=== PATIENT | female | born 1950 | race Caucasian/White ===

== ENCOUNTER 2021-09-14 11:57 | Observation (INO) | payer OTHER, SELFPAY ==
[2021-09-14] VITALS (26 sets, daily range): BP systolic 125–171; BP diastolic 58–95; PULSE 81–104; RESP 15–26; TEMP 36.5–37.3; O2SAT 95–99; BMI 21.7
[2021-09-14 12:30] LABS: Add Manual Diff / Slide Review NO; Basophils Absolute Auto 200 /uL (0-100); Basophils Percent Auto 2.4 % (0-2); Eosinophils Absolute Auto 100 /uL (0-450); Eosinophils Percent Auto 0.7 % (2-4); Hemoglobin 7.2 g/dL (12.0-16.0); Lymphocytes Absolute Auto 1600 /uL (1100-4500); Lymphocytes Percent Auto 24.1 % (25-40); Mean Corpuscular HGB Conc 32.7 % (30-36); Mean Corpuscular Hemoglobin 25.6 PG (26-34); Mean Corpuscular Volume 78.2 fL (80-100); Monocytes Absolute Auto 1600 /uL (0-900); Neutrophils Absolute Auto 3400 /uL (1500-7000); Neutrophils Percent Auto 49.8 % (50-75); Platelet Count 214 X10^3/uL (150-400); Red Blood Cell Count 2.81 X10^6/uL (4.0-5.2); Red Cell Distribution Width 32.7 % (11.6-14.8); White Blood Cell Count 6.8 X10^3/uL (4.5-11.0)
[2021-09-14 12:40] LABS: INR 1.2 (0.9-1.3); Prothrombin Time 13.8 SECONDS (10.1-12.7)
[2021-09-14 12:43] LABS: PTT Partial Thromboplastin Tim 24 SECONDS (26.4-36.2)
[2021-09-14 12:44] LABS: Alanine Aminotransferase 13 IU/L (<35); Albumin 4.2 g/dL (3.5-5.0); Albumin Globulin Ratio 1.4 (1.0-2.8); Alkaline Phosphatase 80 U/L (38-126); Aspartate Aminotransferase 21 IU/L (14-36); BUN Creatinine Ratio 15.5 (6-22); Blood Urea Nitrogen 11 mg/dL (7-17); Carbon Dioxide 26 mmol/L (22-32); Chloride 100 mmol/L (98-107); Estimated Glomerular Filt Rate > 60.0 mL/min (>60); Glucose 115 mg/dL (80-110); HEMOLYSIS < 15 (0-50); Potassium 4.1 mmol/L (3.4-5.1); Sodium 136 mmol/L (137-145); Total Protein 7.2 g/dL (6.3-8.2)
[2021-09-14 13:19] LABS: Anisocytosis 3+; Hypochromasia 2+; Poikilocytosis 1+; Polychromasia 1+
[2021-09-14 13:20] LABS: Ovalocytes 1+
--- NOTE | 2021-09-14 14:40 | ED.WEAKNESS ---
HPI - Weakness General Chief complaint: Weakness Stated complaint: Blood Transfusion Time Seen by Provider: 09/14/21 14:39 Source: patient Mode of arrival: Ambulatory Limitations: no limitations History of Present Illness HPI Narrative: This is a 71-year-old female comes to the emergency department with complaint of fatigue feeling tired and low blood count. She states she has felt lightheaded but not syncopized. No chest pain. She has occasionally felt short of breath. No nausea or vomiting. No diarrhea constipation. No black or bloody stools. No changes to urination, no bleeding or bruising that is been unexpected. She states she has just felt progressively worse for the past month. About 2 months ago she was diagnosed with community-acquired pneumonia and treated at [facility] in the emergency department and discharged. She denies any medical issues. She has had tonsillectomy in the past. She has not had a prior colonoscopy. No tobacco she quit 2 years ago. She drinks 2-4 alcoholic drinks nightly. No illicit. Her primary care is Lucy Redding. Related Data Allergies Allergy/AdvReac Type Severity Reaction Status Date / Time No Known Drug Allergies Allergy Verified 09/14/21 12:04 Review of Systems Review of Systems ROS Unobtainable: All systems reviewed & are unremarkable except as noted in HPI and below Patient History Medical History Community acquired bacterial pneumonia Hip pain Surgical History History of tonsillectomy Family History Father Pancreatic cancer Mother Hx of CABG Social History Smoking Status: Former smoker Smoking Status: Former smoker alcohol intake frequency: 3 or more drinks per day Substance Use Type: does not use Exam Narrative Exam Narrative: GENERAL: Alert and oriented x three, female in mild distress. HEENT: Head normocephalic, atraumatic, EOMI, pupils reactive, face symmetric, moist mucous membranes NECK: Supple, full range of motion CARDIOVASCULAR: Regular rate and rhythm without murmurs, rubs or gallops. RESPIRATORY: Breath sounds equal bilaterally, no wheezes rales or rhonchi. ABDOMEN: Soft, nontender. Normoactive bowel sounds all 4 quadrants. No guarding or rebound, rigidity, no mass. Rectal exam patient has poor stool sample but is negative. No hemorrhoids are appreciated on exam, no mass. : No CVA tenderness. EXTREMITIES: Normal range of motion, no clubbing or edema. Neurovascularly intact NEUROLOGICAL: Cranial nerves II through XII grossly intact. Moving all extremities SKIN: Warm, dry, no petechiae, no rashes or lesions. Initial Vital Signs Initial Vital Signs: Vital Signs Temperature 98.4 F 09/14/21 12:04 Pulse Rate 104 H 09/14/21 12:04 Respiratory Rate 15 09/14/21 12:04 Blood Pressure 165/74 H 09/14/21 12:04 Pulse Oximetry 99 09/14/21 12:04 Course Orders Ordered: ED Orders 09/14/21 12:08 EKG-12 Lead Stat 09/14/21 12:15 Complete Blood Count AUTO DIFF Stat Comprehensive Metabolic Panel Stat Packed Cells Stat Partial Thromboplastin Time Stat Prothrombin Time INR Stat Type and Screen Stat Acetaminophen (Acetaminophen 325 Mg Tablet) 650 mg PO Q6HR PRN PRN Reason: Fever/Mild Pain (1-3) Bisacodyl (Bisacodyl 10 Mg Supp) 10 mg DE DAILY PRN PRN Reason: Constipation Docusate Sodium (Docusate 100 Mg Capsule) 100 mg PO BID CARMELINA Folic Acid (Folic Acid 1 Mg Tablet) 1 mg PO DAILY CARMELINA Sodium Chloride (Normal Saline 0.9%) 250 mls @ 21 mls/hr IV CONT CARMELINA Dextrose/Sodium Chloride (Dextrose 5%-0.45% Ns) 1,000 mls @ 100 mls/hr IV CONT CARMELINA Lorazepam (Lorazepam 1 Mg Tablet) 1 mg PO Q6HR PRN PRN Reason: Alcohol Withdrawal Magnesium Hydroxide (Magnesium Hydroxide 30 Ml Udc) 30 ml PO DAILY PRN PRN Reason: Constipation Multivitamins (Multivitamin 1 Tablet) 1 tab PO DAILY CARMELINA Naloxone HCl (Naloxone 0.4 Mg/Ml Vial) 0.2 mg IV Q2MIN PRN PRN Reason: Opiate Reversal Ondansetron HCl (Ondansetron 4 Mg/2 Ml Inj) 4 mg IV Q8HR PRN PRN Reason: Nausea And Vomiting Pantoprazole Sodium (Pantoprazole 40 Mg Vial) 40 mg IV BID CARMELINA Polyethylene Glycol/Electrolytes ([id number]/Sod Sulf,Bicarb,Cl/Kcl 4,000 Ml Solution) 2,000 ml PO NOW ONE Stop: 09/15/21 07:32 Thiamine HCl (Thiamine 100 Mg Tablet) 100 mg PO DAILY CARMELINA Stop: 09/17/21 09:01 Discontinued Medications Polyethylene Glycol/Electrolytes ([id number]/Sod Sulf,Bicarb,Cl/Kcl 4,000 Ml Solution) 2,000 ml PO NOW ONE Stop: 09/14/21 17:31 Last Admin: 09/14/21 19:23 Dose: 2,000 ml Documented by: ATAYLOR Consultations Consultation #1: Dr. Connors accepts for admission. We are attempting to get records from [facility]. Time: 15:26 Vital Signs Vital signs: Vital Signs - 8 hr 09/14/21 12:04 09/14/21 13:22 09/14/21 13:34 Temperature 98.4 F Pulse Rate 104 H 97 H 98 H Respiratory Rate 15 21 22 Blood Pressure 165/74 H 138/63 Pulse Oximetry 99 97 97 09/14/21 14:00 09/14/21 14:30 09/14/21 15:00 Temperature Pulse Rate 93 H 92 H 93 H Respiratory Rate 19 21 25 H Blood Pressure 125/58 L 135/58 L 142/65 H Pulse Oximetry 97 97 98 MDM - Weakness Lab Data Result diagrams: 09/14/21 12:15 09/14/21 12:15 Labs: Lab Results 09/14/21 09/14/21 09/14/21 Range/Units 12:15 12:15 12:15 WBC 6.8 (4.5-11.0) X10^3/uL RBC 2.81 L (4.0-5.2) X10^6/uL Hgb 7.2 L (12.0-16.0) g/dL Hct 22.0 L (36-46) % MCV 78.2 L (80-100) fL MCH 25.6 L (26-34) PG MCHC 32.7 (30-36) % RDW 32.7 H (11.6-14.8) % Plt Count 214 (150-400) X10^3/uL Neut % (Auto) 49.8 L (50-75) % Lymph % (Auto) 24.1 L (25-40) % Tate % (Auto) 23.0 H (3-14) % Eos % (Auto) 0.7 L (2-4) % Baso % (Auto) 2.4 H (0-2) % Neut # (Auto) 3400 (0018-6533) /uL Lymph # (Auto) 1600 (2354-0813) /uL Tate # (Auto) 1600 H (0-900) /uL Eos # (Auto) 100 (0-450) /uL Baso # (Auto) 200 H (0-100) /uL RBC Morphology Not Reportable Polychromasia 1+ H Hypochromasia 2+ H Poikilocytosis 1+ H Anisocytosis 3+ H Ovalocytes 1+ H PT 13.8 H (10.1-12.7) SECONDS INR 1.2 (0.9-1.3) APTT 24 L (26.4-36.2) SECONDS Sodium 136 L (137-145) mmol/L Potassium 4.1 (3.4-5.1) mmol/L Chloride 100 (98-107) mmol/L Carbon Dioxide 26 (22-32) mmol/L BUN 11 (7-17) mg/dL Creatinine 0.71 (0.52-1.04) mg/dL Estimated GFR > 60.0 (>60) mL/min BUN/Creatinine Ratio 15.5 (6-22) Glucose 115 H (80-110) mg/dL Calcium 9.0 (8.4-10.2) mg/dL Total Bilirubin 1.0 (0.2-1.3) mg/dL AST 21 (14-36) IU/L ALT 13 (<35) IU/L Alkaline Phosphatase 80 (38-126) U/L Total Protein 7.2 (6.3-8.2) g/dL Albumin 4.2 (3.5-5.0) g/dL Globulin 3.0 (1.7-4.1) g/dL Albumin/Globulin Ratio 1.4 (1.0-2.8) Blood Type Antibody Screen Crossmatch 09/14/21 Range/Units 12:15 WBC (4.5-11.0) X10^3/uL RBC (4.0-5.2) X10^6/uL Hgb (12.0-16.0) g/dL Hct (36-46) % MCV (80-100) fL MCH (26-34) PG MCHC (30-36) % RDW (11.6-14.8) % Plt Count (150-400) X10^3/uL Neut % (Auto) (50-75) % Lymph % (Auto) (25-40) % Tate % (Auto) (3-14) % Eos % (Auto) (2-4) % Baso % (Auto) (0-2) % Neut # (Auto) (2841-9557) /uL Lymph # (Auto) (6173-0399) /uL Tate # (Auto) (0-900) /uL Eos # (Auto) (0-450) /uL Baso # (Auto) (0-100) /uL RBC Morphology Polychromasia Hypochromasia Poikilocytosis Anisocytosis Ovalocytes PT (10.1-12.7) SECONDS INR (0.9-1.3) APTT (26.4-36.2) SECONDS Sodium (137-145) mmol/L Potassium (3.4-5.1) mmol/L Chloride (98-107) mmol/L Carbon Dioxide (22-32) mmol/L BUN (7-17) mg/dL Creatinine (0.52-1.04) mg/dL Estimated GFR (>60) mL/min BUN/Creatinine Ratio (6-22) Glucose (80-110) mg/dL Calcium (8.4-10.2) mg/dL Total Bilirubin (0.2-1.3) mg/dL AST (14-36) IU/L ALT (<35) IU/L Alkaline Phosphatase (38-126) U/L Total Protein (6.3-8.2) g/dL Albumin (3.5-5.0) g/dL Globulin (1.7-4.1) g/dL Albumin/Globulin Ratio (1.0-2.8) Blood Type A Negative Antibody Screen Negative Crossmatch See Detail Point of Care Testing Stool Occult Blood Negative ECG Data Attestation: I personally reviewed and interpreted this ECG as follows: Interpretation: Sinus rhythm rate of 98PR 128 QRS 80 QTC [address] No acute [address] elevation depression. MDM Narrative Medical decision making narrative: This is a 71-year-old female comes in with complaint of about a month of increasing fatigue and just feeling unwell, shortness of breath and lightheadedness but no syncope. Her hemoglobin today is 7. We were able to obtain records and she was in the 9 range 2 months ago in July when she was seen at [facility]. No clear source of her microcytic anemia is found but on rectal exam she had poor stool sample so she may have GI bleed. I spoke with the hospitalist who accepts for admission. Discharge Plan Departure Patient Disposition: Admitted as Observation Clinical Impression: Symptomatic anemia Admit Date/Time: 09/14/21 15:27 Admit Provider: Jennifer Connors
--- NOTE | 2021-09-14 15:18 | PC.NURSE ---
Consent for Blood form signed and placed in the chart.
--- NOTE | 2021-09-14 16:49 | PM.HP.1 ---
History of Present Illness History of Present Illness Date Patient Seen: 09/14/21 Time Patient Seen: 16:50 Chief complaint: Blood Transfusion Narrative: 71 y/o female former smoker, who drinks 3-4 beers nightly presents with complaints of generalized fatigue, weakness and mild shortness of breath. Patient states symptoms started about one month ago. She reports it has gotten progressively worse, such that she is more fatigued with minimal activity. She has mild shortness of breath but no chest pain. She has had no hemetemesis, melena, or bright red blood per rectum. She denies any weightloss, abdominal pain, history of ulcers, or prior history of anemia. She has been vaccinated against Covid-19, and has recieved her booster. She has not had a colonoscopy previously. She was evaluated in the ED and found to be markedly anemic with a hemoglobin of 7.2, hematocrit of 22, platelets of 214. She was guiac negative per the ED MD, but no leann stool found. Her appetite has been poor lately but she denies any weight loss. Patient History Medical History (Updated 09/14/21 @ 16:55 by Jennifer Connors MD) Community acquired bacterial pneumonia Hip pain Surgical History (Updated 09/14/21 @ 16:56 by Jennifer Connors MD) History of tonsillectomy Family & Social History Family History (Updated 09/14/21 @ 16:57 by Jennifer oCnnors MD) Father Pancreatic cancer Mother Hx of CABG Safety & Behavioral: Feels Safe in Current Yes Environment Been Physically Hurt or No Threatened By a Person Tobacco & Substance use: Smoking Status Former smoker alcohol intake frequency 3 or more drinks per day Substance Use Type does not use Meds Home Medications and Allergies Allergies Allergy/AdvReac Type Severity Reaction Status Date / Time No Known Drug Allergies Allergy Verified 09/14/21 12:04 Review of Systems Review of Systems Narrative: 10 point review of system is negative Exam Vital Signs (past 8 hours): - 09/14/21 12:04 09/14/21 13:22 09/14/21 13:34 Temperature 98.4 F Pulse Rate 104 H 97 H 98 H Respiratory Rate 15 Blood Pressure 165/74 H 138/63 Pulse Oximetry 99 97 97 09/14/21 14:00 09/14/21 14:30 09/14/21 15:00 Temperature Pulse Rate 93 H 92 H 93 H Respiratory Rate 19 21 25 H Blood Pressure 125/58 L 135/58 L 142/65 H Pulse Oximetry 97 97 98 09/14/21 15:30 09/14/21 16:26 Temperature 98.4 F Pulse Rate 96 H 97 H Respiratory Rate 26 H 18 Blood Pressure 150/67 H 133/62 Pulse Oximetry 98 Oxygen Delivery Method Room Air Narrative Exam Narrative: Pleasant female resting comfortably in No Acute Distress HENAL Other: NC/AT, EOMI, Sclera anicteric Neck Other: Supple, no adenopathy or thyromegaly Resp Other: Clear to auscultation Cardio Other: RRR nl S1S2 2/6 MOOKIE GI Other: ABd: soft/ non tender/ non distended, no hepatosplenomegaly Skin Other: teleangectasias of the face, bilateral cheeks Neuro Other: Non focal Extrem Other: no edema Psych Other: Awake and appropriate, normal thought content, no hallucinations, or delusions, speech and affect normal Objective Labs Result Diagrams: 09/14/21 12:15 09/14/21 12:15 Labs: Laboratory Results - last 24 hr 09/14/21 09/14/21 09/14/21 12:15 12:15 12:15 WBC 6.8 RBC 2.81 L Hgb 7.2 L Hct 22.0 L MCV 78.2 L MCH 25.6 L MCHC 32.7 RDW 32.7 H Plt Count 214 Neut % (Auto) 49.8 L Lymph % (Auto) 24.1 L Buchanan % (Auto) 23.0 H Eos % (Auto) 0.7 L Baso % (Auto) 2.4 H Neut # (Auto) 3400 Lymph # (Auto) 1600 [place]anan # (Auto) 1600 H Eos # (Auto) 100 Baso # (Auto) 200 H RBC Morphology Not Reportable Polychromasia 1+ H Hypochromasia 2+ H Poikilocytosis 1+ H Anisocytosis 3+ H Ovalocytes 1+ H PT 13.8 H INR 1.2 APTT 24 L Sodium 136 L Potassium 4.1 Chloride 100 Carbon Dioxide 26 BUN 11 Creatinine 0.71 Estimated GFR > 60.0 BUN/Creatinine Ratio 15.5 Glucose 115 H Calcium 9.0 Total Bilirubin 1.0 AST 21 ALT 13 Alkaline Phosphatase 80 Total Protein 7.2 Albumin 4.2 Globulin 3.0 Albumin/Globulin Ratio 1.4 Blood Type Antibody Screen Crossmatch 09/14/21 12:15 WBC RBC Hgb Hct MCV MCH MCHC RDW Plt Count Neut % (Auto) Lymph % (Auto) [place]anan % (Auto) Eos % (Auto) Baso % (Auto) Neut # (Auto) Lymph # (Auto) [place]anan # (Auto) Eos # (Auto) Baso # (Auto) RBC Morphology Polychromasia Hypochromasia Poikilocytosis Anisocytosis Ovalocytes PT INR APTT Sodium Potassium Chloride Carbon Dioxide BUN Creatinine Estimated GFR BUN/Creatinine Ratio Glucose Calcium Total Bilirubin AST ALT Alkaline Phosphatase Total Protein Albumin Globulin Albumin/Globulin Ratio Blood Type A Negative Antibody Screen Negative Crossmatch See Detail Assessment & Plan Assessment & Plan narrative: 71 y/o female admitted for symptomatic anemia -H/H 7.12/05 -RDW 32.7, MCV 78, smear reveals Anisocystosis, ovalocytes, polychromasia -No evidence of upper or lower GI bleed -No history of Colonoscopy -Will check iron studies, B-12, Folate -Check LDH, Haptoglobin, bili normal -Transfuse 2 units PRBC's -Surgery consult for EGD +/- C-scope depending on findings -Will start IV PPI, repeat labs in am -further work up depending on results of above -Patient admits to some shakes after not drinking -Will start CIWA protocol tonight -SCD's no chemical dvt prophylaxis given potential bleeding issue Patient reports her is her surrogate decision maker. She wishes to be a full code. Patient is admitted under observation. Anticipate Discharge within 48 hours. I have utilized all available resources to review, update, and confirm her current medications. Time Spent With Patient Critical Care time: I spent a total of [] minutes of critical care time on this patient's care today; this time is exclusive of procedural time.
--- NOTE | 2021-09-14 17:36 | P.CONS_ITS ---
History of Present Illness Consult details Date Patient Seen: 09/14/21 Time Patient Seen: 17:36 Chief complaint: Blood Transfusion Reason for consult: Anemia Requesting provider: Jennifer Connors Narrative: The patient is a woman who has been feeling unusually tired and dizzy for the last 2 days. The last month she has not felt quite like herself. She was recently treated for pneumonia at [facility] as an outpatient. That treatment improved her sense of wellness for short period but then she began to decline again. She has been otherwise healthy. She drinks 4-6 beers a day. No prior operations. Denies any abdominal pain. Has had no external blood loss that she is aware of. Patient has never had a colonoscopy. Meds Home Medications and Allergies Allergies Allergy/AdvReac Type Severity Reaction Status Date / Time No Known Drug Allergies Allergy Verified 09/14/21 12:04 Review of Systems Review of Systems Narrative: Patient denies any visual difficulties double vision pain arise earaches or sore throats. She denies trouble swallowing or tooth aches. No cough cold or asthma. She has not had COVID. She is vaccinated. Patient denies heart problems or chest pain. No black or bloody bowel movements. No abdominal pain. No seizures or blackouts. No blood in her urine. She has been little anxious as she has felt poorly and also somewhat depressed for the same reason. Exam Vital Signs (past 8 hours): - 09/14/21 12:04 09/14/21 13:22 09/14/21 13:34 Temperature 98.4 F Pulse Rate 104 H 97 H 98 H Respiratory Rate 15 22 Blood Pressure 165/74 H 138/63 Pulse Oximetry 99 97 97 09/14/21 14:00 09/14/21 14:30 09/14/21 15:00 Temperature Pulse Rate 93 H 92 H 93 H Respiratory Rate 19 21 25 H Blood Pressure 125/58 L 135/58 L 142/65 H Pulse Oximetry 97 97 98 09/14/21 15:30 09/14/21 16:26 09/14/21 16:45 Temperature 98.4 F 98.7 F Pulse Rate 96 H 97 H 91 H Respiratory Rate 26 H 18 18 Blood Pressure 150/67 H 133/62 140/74 Pulse Oximetry 98 Oxygen Delivery Method Room Air Narrative Exam Narrative: Cooperative in no apparent distress. Eyes are nonicteric. Pupils equal round reactive to light. Neck is supple. No nodes in the neck or supraclavicular areas. Trachea is midline mobile. Lungs are clear to auscultation without rales or rhonchi. Equal percussion heart regular rate and rhythm without murmur gallop. 3+ pulses at the wrist. Abdomen is soft nontender without mass. No organ enlargement is appreciated. Patient is alert and oriented x3. Speech rate and content are appropriate. Affect is appropriate. Objective Labs Result Diagrams: 09/14/21 12:15 09/14/21 12:15 Labs: Laboratory Results - last 24 hr 09/14/21 09/14/21 09/14/21 12:15 12:15 12:15 WBC 6.8 RBC 2.81 L Hgb 7.2 L Hct 22.0 L MCV 78.2 L MCH 25.6 L MCHC 32.7 RDW 32.7 H Plt Count 214 Neut % (Auto) 49.8 L Lymph % (Auto) 24.1 L [place] % (Auto) 23.0 H Eos % (Auto) 0.7 L Baso % (Auto) 2.4 H Neut # (Auto) 3400 Lymph # (Auto) 1600 [place] # (Auto) 1600 H Eos # (Auto) 100 Baso # (Auto) 200 H RBC Morphology Not Reportable Polychromasia 1+ H Hypochromasia 2+ H Poikilocytosis 1+ H Anisocytosis 3+ H Ovalocytes 1+ H PT 13.8 H INR 1.2 APTT 24 L Sodium 136 L Potassium 4.1 Chloride 100 Carbon Dioxide 26 BUN 11 Creatinine 0.71 Estimated GFR > 60.0 BUN/Creatinine Ratio 15.5 Glucose 115 H Calcium 9.0 Total Bilirubin 1.0 AST 21 ALT 13 Alkaline Phosphatase 80 Total Protein 7.2 Albumin 4.2 Globulin 3.0 Albumin/Globulin Ratio 1.4 Blood Type Antibody Screen Crossmatch 09/14/21 12:15 WBC RBC Hgb Hct MCV MCH MCHC RDW Plt Count Neut % (Auto) Lymph % (Auto) [place] % (Auto) Eos % (Auto) Baso % (Auto) Neut # (Auto) Lymph # (Auto) [place] # (Auto) Eos # (Auto) Baso # (Auto) RBC Morphology Polychromasia Hypochromasia Poikilocytosis Anisocytosis Ovalocytes PT INR APTT Sodium Potassium Chloride Carbon Dioxide BUN Creatinine Estimated GFR BUN/Creatinine Ratio Glucose Calcium Total Bilirubin AST ALT Alkaline Phosphatase Total Protein Albumin Globulin Albumin/Globulin Ratio Blood Type A Negative Antibody Screen Negative Crossmatch See Detail [facility] Medical History Community acquired bacterial pneumonia Hip pain Surgical History History of tonsillectomy Family History Father Pancreatic cancer Mother Hx of CABG Tobacco & Substance Use Smoking Status: Former smoker Assessment & Plan Assessment and plan (1) Microcytic anemia: Status: Acute Plan Patient is a woman with a microcytic anemia. Most likely source of unexplained blood loss is her GI tract. She does have adequate platelets and does appear to be making precursor red cells so less likely to be marrow related problem. I have discussed performing an EGD and colonoscopy with the patient. I talked to her about ulcer other diseases and polyps etc.. I talked to her about unexplained blood loss. I talked to her about the procedures. I have discussed the procedure and the rationale with the patient including risks of bleeding, perforation which would necessitate a major operation, failure to find remove a ll lesions and the potential to tattoo. She appeared to understand and wished to proceed. I spoke with her about the bowel prep. Will proceed with EGD and colonoscopy tomorrow probably in the afternoon. Time Spent With Patient Critical Care time: I spent a total of [] minutes of critical care time on this patient's care t chandana; this time is exclusive of procedural time.
[2021-09-14 18:14] LABS: Bilirubin Total 1.1 mg/dL (0.2-1.3); Lactate Dehydrogenase 426 U/L (313-618)
[2021-09-14 18:41] LABS: HEMOLYSIS < 15 (0-50); Iron 206 ug/dL (37-170)
[2021-09-14 18:52] LABS: Percent Iron Saturation 61 % (15-50); Total Iron Binding Capacity 339 ug/dL (265-497); Transferrin 237 mg/dL (206-381)
[2021-09-14 19:21] LABS: Folate 12.1 ng/mL (2.76-20.0); Vitamin B12 333 pg/mL (239-931)
[2021-09-14] MEDS: PEG3350/SOD SULF,BICARB,CL/KCL 4,000 ML SOLUTION 2000 ML PO (19:23)
[2021-09-14] MEDS: LORazepam 1 MG TABLET PO (19:48)
[2021-09-14] MEDS: PANTOPRAZOLE 40 MG VIAL IV (21:34)
[2021-09-14] MEDS: DEXTROSE 5%-0.45% NS 1,000 ML 100 ML IV (21:48)
--- NOTE | 2021-09-14 22:33 | PC.NURSE ---
Pt second unit of blood completed at 2123, intake 325ml with 0ml remaining in bag.
[2021-09-14 23:02] LABS: COVID19 - ADMIT (NP swab/PCR) Negative (Negative)
[2021-09-15] VITALS (31 sets, daily range): BP systolic 95–159; BP diastolic 44–88; PULSE 76–103; RESP 14–43; TEMP 36.8–37.2; O2SAT 92–100; BMI 21.7; BMI 22.8
--- NOTE | 2021-09-15 | PATH_ITS ---
[facility] Accession Number: [id number] . 01 Material submitted: . PART A: esophagus - ESOPHAGEAL LESION PART B: body - POLYP AT 55 . 02 Diagnosis: A. Esophagus, Biopsy: Squamocolumnar junctional mucosa with foveolar hyperplasia, consistent with hyperplastic polyp. Negative for intestinal metaplasia. Negative for dysplasia and malignancy. . B. Colon, Polyp at 55, Biopsy: Sessile serrated adenoma. MRV 09/18/2021 1114 Local . 02 Electronically signed: . Mary Bang MD, Pathologist NPI- [id number] . 01 Gross description: . Part A: ESOPHAGEAL LESION: Received in formalin are 2 fragment(s) of rhodes, soft tissue measuring 0.4 x 0.3 x 0.3 cm to 0.3 x 0.3 x 0.2 cm submitted entirely in 1 cassette(s) Part B: POLYP AT 55: Received in formalin are multiple fragment(s) of rhodes, soft tissue measuring 0.9 x 0.8 x 0.4 cm in aggregate submitted entirely in 1 cassette(s) /QBJ 09/16/2021 0744 Local . 02 Pathologist provided ICD-10: D12.6 . 02 CPT . 436880, [id number] Performed at: 01 [facility] [address], [place], [place] [id number] MD Aries Keller MD Phone: [phone] Performed at: 02 [facility] [address], [place], [place] [id number] MD Mary Bang MD Phone: [phone]
--- NOTE | 2021-09-15 00:52 | PC.NURSE ---
Pt is still working on finishing bowel prep.
[2021-09-15 06:27] LABS: Basophils Absolute Auto 100 /uL (0-100); Basophils Percent Auto 1.5 % (0-2); Eosinophils Absolute Auto 0 /uL (0-450); Eosinophils Percent Auto 0.4 % (2-4); Hemoglobin 8.2 g/dL (12.0-16.0); Lymphocytes Absolute Auto 2600 /uL (1100-4500); Lymphocytes Percent Auto 39.2 % (25-40); Mean Corpuscular HGB Conc 33.8 % (30-36); Mean Corpuscular Hemoglobin 26.7 PG (26-34); Mean Corpuscular Volume 78.8 fL (80-100); Monocytes Absolute Auto 1400 /uL (0-900); Neutrophils Absolute Auto 2400 /uL (1500-7000); Neutrophils Percent Auto 36.9 % (50-75); Platelet Count 162 X10^3/uL (150-400); Red Blood Cell Count 3.06 X10^6/uL (4.0-5.2); Red Cell Distribution Width 28.2 % (11.6-14.8); White Blood Cell Count 6.6 X10^3/uL (4.5-11.0)
[2021-09-15 06:29] LABS: Alanine Aminotransferase 11 IU/L (<35); Albumin 3.3 g/dL (3.5-5.0); Albumin Globulin Ratio 1.2 (1.0-2.8); Alkaline Phosphatase 55 U/L (38-126); Aspartate Aminotransferase 19 IU/L (14-36); BUN Creatinine Ratio 21.1 (6-22); Bilirubin Total 1.4 mg/dL (0.2-1.3); Blood Urea Nitrogen 12 mg/dL (7-17); Calcium 8.3 mg/dL (8.4-10.2); Carbon Dioxide 30 mmol/L (22-32); Chloride 101 mmol/L (98-107); Estimated Glomerular Filt Rate > 60.0 mL/min (>60); Globulin 2.8 g/dL (1.7-4.1); Glucose 141 mg/dL (80-110); HEMOLYSIS < 15 (0-50); Potassium 3.8 mmol/L (3.4-5.1); Sodium 134 mmol/L (137-145); Total Protein 6.1 g/dL (6.3-8.2)
[2021-09-15 06:32] LABS: Add Manual Diff / Slide Review SLIDE REVIEW; Hematocrit 24.1 % (36-46)
[2021-09-15 08:13] LABS: Anisocytosis 2+
[2021-09-15 08:14] LABS: Microcytosis 1+
[2021-09-15 08:15] LABS: Hypochromasia 1+; Polychromasia 1+; Schistocytes 2+; Tear Drop Cells 1+
[2021-09-15 08:53] LABS: Haptoglobin 183 mg/dL (42-346)
[2021-09-15] MEDS: THIAMINE 100 MG TABLET PO (10:20)
[2021-09-15] MEDS: FOLIC ACID 1 MG TABLET PO (10:22)
[2021-09-15] MEDS: MULTIVITAMIN 1 TABLET 1 TAB PO (10:22)
[2021-09-15] MEDS: PANTOPRAZOLE 40 MG VIAL IV (10:22)
[2021-09-15] MEDS: PEG3350/SOD SULF,BICARB,CL/KCL 4,000 ML SOLUTION 2000 ML PO (10:22)
[2021-09-15] MEDS: LACTATED RINGERS 1,000 ML 42 ML IV (11:06)
--- NOTE | 2021-09-15 11:16 | SUR.HOLD ---
1030-in preop holding for egd/colonoscopy. prep taken 12/15. up to restroom-clear and yellow in color. denies pain. consent obtained. 1120-oob to restroom .remains clear and yellow. awaiting procedure. has call light and cellphone.
--- NOTE | 2021-09-15 12:50 | PM.PREOP ---
Pre-operative Note COVID-19 COVID-19 status: Negative Result date/Date tested (Pos, Neg/Pending): 09/14/21 Interval Note History & Physical reviewed/Exam performed by Physician: Yes Changes to H&P: No ASA Class (for procedural sedation): I
--- NOTE | 2021-09-15 13:21 | SUR.OPER ---
GLASSES AND CELL PHONE IN LABELED BAG TO PACU WITH [id number]
[2021-09-15] MEDS: MIDAZOLAM 5 MG/5 ML VIAL IV (13:38)
[2021-09-15] MEDS: LIDOCAINE 4% SOLN 50 ML 20 ML TOP (13:39)
[2021-09-15] MEDS: fentaNYL 250 MCG/5 ML INJ IV (13:39)
--- NOTE | 2021-09-15 13:42 | PM.OP.EC ---
Operative Date/Time/Diagnoses Date of procedure: 09/15/21 Time of procedure: 13:42 Pre-op diagnosis: Anemia of uncertain origin Post-op diagnosis: same Procedure & Clinicians Study performed: EGD with cold biopsy. Colonoscopy with cold biopsy. Same procedure as scheduled: Yes Indications: Determine if there is a GI source of her chronic iron deficient anemia. Surgeon: Andrzej Huston Procedure Notes SCOAP/Timeout: Performed Procedure in detail: The patient had topical anesthetic applied to oropharynx. She was placed in the supine position and underwent IV sedation directed by the surgeon consisting of fentanyl and Versed. A bite block was inserted and the scope was advanced through it into the esophagus. The esophagus was unremarkable until I reach the distal esophagus. There appeared to be a mildly inflamed area in the distal esophagus. The stomach insufflated well. There were no lesions seen in the body, antrum or at the incisura. The pyloric channel was patent. The duodenum was unremarkable to the 3rd part. Scope was brought back into the stomach and retroflexed. The proximal stomach was normal in appearance. There was no evidence of a hiatal hernia. No ulcers were seen in the stomach. The scope was straightened and brought out through the esophagus again. I biopsied the areas in the distal esophagus and then removed the scope. No other lesions were seen. Vocal cords looked normal. Epiglottis looked normal. The scope was removed and the patient tolerated the procedure well. The patient was then placed in the left lateral decubitus position and underwent additional IV sedation directed by the surgeon consisting of fentanyl and Versed. Digital exam was unremarkable except for mild decreased sphincter tone. The scope was inserted and advanced through the rectum into the sigmoid, descending, transverse, and ascending colon. Patient was noted to have sigmoid diverticulosis. Pressure was applied and we made our way into the cecum. The cecum was reached identified by the ileocecal valve and the appendiceal opening. The ileocecal valve was [unable to be cannulated despite multiple attempts to do so. The ileocecal valve was normal in appearance. The scope was gradually brought out. One small possible Polyp was found at 55cm from the anal verge. The scope ultimately was retroflexed in the rectum. The appearance was normal. The scope was removed and the patient tolerated the procedure well. It is possible that the esophageal lesion could be the source of her anemia but I am not clear that that is the case. If patient continues to have anemia consider a CT scan and perhaps a CT enteroclysis. Scope withdrawal time: 6 minutes(8 total) Sedation minutes: 28 Findings: diverticulosis (Sigmoid colon), polyp (At 55 cm from the anal verge) and other findings (Red esophageal lesion in the distal esophagus) Specimen(s): other (Colon polyp. Esophageal biopsy.) Complications: none Post-procedure Recommendations: Colonscopy in 5 years (Unless the polyp is not neoplastic. In that case she probably does not need a screening colonoscopy.) and Other recommendation (Continue proton pump inhibitor as an outpatient due to the finding in the esophagus.) Follow up: as needed Disposition: PACU
[2021-09-15] MEDS: DEXTROSE 5%-0.45% NS 1,000 ML 100 ML IV (14:43)
--- NOTE | 2021-09-15 15:24 | PC.NURSE ---
Pt arrived from PACU at approx 1430. A/O. VSS. RA . Denies pain. IVF, SCD's and Tele initiated. in for rounding, D/C to home ordered.
--- NOTE | 2021-09-15 15:47 | P.DS_ITS ---
History of Present Illness History of Present Illness Chief complaint: Blood Transfusion Narrative: 71 y/o female former smoker, who drinks 3-4 beers nightly presents with complaints of generalized fatigue, weakness and mild shortness of breath. Patient states symptoms started about one month ago. She reports it has gotten progressively worse, such that she is more fatigued with minimal activity. She has mild shortness of breath but no chest pain. She has had no hemetemesis, melena, or bright red blood per rectum. She denies any weightloss, abdominal pain, history of ulcers, or prior history of anemia. She has been vaccinated against Covid-19, and has recieved her booster. She has not had a colonoscopy previously. She was evaluated in the ED and found to be markedly anemic with a hemoglobin of 7.2, hematocrit of 22, platelets of 214. She was guiac negative per the ED MD, but no leann stool found. Her appetite has been poor lately but she denies any weight loss. Discharge Providers Provider Date of admission: 09/14/21 15:27 Discharge Date: 09/15/21 Primary care physician: Lucy Redding PA-C Consults: 09/14/21 16:47 Consult to Dietitian, Adult Routine Comment: Reason For Exam: anemia 09/14/21 16:48 Consult to Physician Routine Comment: Consulting Provider: Andrzej Huston Reason for consultation: symptomatic anemia Has provider been notified: Yes Discharge provider: Jennifer Connors MD Summary Hospital Course Discharge Diagnosis: 1. Anemia, etiology unclear 2. Status post EGD and colonoscopy, diverticulosis found on colonoscopy, polyp identified, red esophageal lesion in the distal esophagus, but no obvious source of bleeding 3. Status post 2 units of packed RBCs Hospital Course: Patient is a 71-year-old female who was admitted to the hospital for symptomatic anemia. She denied any hematemesis melena or bright red blood per rectum. She was found to have a hemoglobin of 7.2. She received 2 units of packed RBCs, her hemoglobin increased to 8.2. She underwent upper endoscopy which revealed a red esophageal lesion in the distal esophagus but no obvious source of bleeding. Colonoscopy revealed a polyp, and diverticulosis but no source of bleeding. The patient had a LDH of 426, her bilirubin was mildly elevated at 1.4, her total iron was 206, TIBC 339, % saturation 61%, transferrin was 237. The patient will follow-up with her PCP have main Redding, she is being referred to Hematology for possible bone marrow biopsy and aspirate. Her indices which suggests the possibility of hemochromatosis. Patient will need further outpatient workup to make this diagnosis. Patient had no complaints was deemed appropriate for discharge and discharged home Status at Discharge Cognitive/behavioral status at discharge: oriented Functional status at discharge: independent ambulation Overall status at discharge: patient is progressing back to baseline Exam Vital Signs (past 8 hours): - 09/15/21 08:00 09/15/21 08:30 09/15/21 08:58 Temperature Pulse Rate 80 86 83 Respiratory Rate 23 20 Blood Pressure 129/63 Pulse Oximetry 96 99 98 09/15/21 09:00 09/15/21 09:02 09/15/21 09:30 Temperature Pulse Rate 95 H 80 Respiratory Rate 20 22 Blood Pressure 159/76 H Pulse Oximetry 98 98 09/15/21 10:00 09/15/21 10:30 09/15/21 11:03 Temperature 98.9 F Pulse Rate 80 86 83 Respiratory Rate 23 25 H 20 Blood Pressure 126/57 L 139/88 Pulse Oximetry 98 100 100 09/15/21 13:42 09/15/21 13:49 09/15/21 13:53 Temperature 98.2 F Pulse Rate 85 85 84 Respiratory Rate 16 14 14 Blood Pressure 99/45 L 101/44 L 95/71 Pulse Oximetry 99 95 92 09/15/21 15:19 Temperature Pulse Rate Respiratory Rate Blood Pressure Pulse Oximetry 100 Oxygen Delivery Method Room Air Oxygen Flow Rate 0 Narrative Exam Narrative: Pleasant female in no obvious distress Resp Other: Lungs clear to auscultation Cardio Other: Cardiac exam: Regular rate rhythm normal S1-S2 GI Other: Abdomen: Soft nontender nondistended Extrem Other: Extremities: No edema Objective Labs Result Diagrams: 09/15/21 06:10 09/15/21 06:10 Labs: Laboratory Results - last 24 hr 09/14/21 09/14/21 09/14/21 12:15 17:55 17:55 WBC RBC Hgb Hct MCV MCH MCHC RDW Plt Count Neut % (Auto) Lymph % (Auto) Thayer % (Auto) Eos % (Auto) Baso % (Auto) Neut # (Auto) Lymph # (Auto) Thayer # (Auto) Eos # (Auto) Baso # (Auto) RBC Morphology Polychromasia Hypochromasia Anisocytosis Microcytosis Tear Drop Cells Schistocytes Haptoglobin 183 Sodium Potassium Chloride Carbon Dioxide BUN Creatinine Estimated GFR BUN/Creatinine Ratio Glucose Calcium Iron TIBC % Saturation Transferrin Total Bilirubin 1.1 AST ALT Alkaline Phosphatase Lactate Dehydrogenase 426 Total Protein Albumin Globulin Albumin/Globulin Ratio Vitamin B12 Folate SARS-CoV-2 (PCR) Blood Type A Negative Antibody Screen Negative Crossmatch See Detail 09/14/21 09/14/21 09/14/21 17:55 17:55 21:41 WBC RBC Hgb Hct MCV MCH MCHC RDW Plt Count Neut % (Auto) Lymph % (Auto) Thayer % (Auto) Eos % (Auto) Baso % (Auto) Neut # (Auto) Lymph # (Auto) Thayer # (Auto) Eos # (Auto) Baso # (Auto) RBC Morphology Polychromasia Hypochromasia Anisocytosis Microcytosis Tear Drop Cells Schistocytes Haptoglobin Sodium Potassium Chloride Carbon Dioxide BUN Creatinine Estimated GFR BUN/Creatinine Ratio Glucose Calcium Iron 206 H TIBC 339 % Saturation 61 H Transferrin 237 Total Bilirubin AST ALT Alkaline Phosphatase Lactate Dehydrogenase Total Protein Albumin Globulin Albumin/Globulin Ratio Vitamin B12 333 Folate 12.1 SARS-CoV-2 (PCR) Negative Blood Type Antibody Screen Crossmatch 09/15/21 09/15/21 06:10 06:10 WBC 6.6 RBC 3.06 L Hgb 8.2 L Hct 24.1 L MCV 78.8 L MCH 26.7 MCHC 33.8 RDW 28.2 H Plt Count 162 Neut % (Auto) 36.9 L Lymph % (Auto) 39.2 Thayer % (Auto) 22.0 H Eos % (Auto) 0.4 L Baso % (Auto) 1.5 Neut # (Auto) 2400 Lymph # (Auto) 2600 Thayer # (Auto) 1400 H Eos # (Auto) 0 Baso # (Auto) 100 RBC Morphology See below Polychromasia 1+ H Hypochromasia 1+ H Anisocytosis 2+ H Microcytosis 1+ H Tear Drop Cells 1+ H Schistocytes 2+ H Haptoglobin Sodium 134 L Potassium 3.8 Chloride 101 Carbon Dioxide 30 BUN 12 Creatinine 0.57 Estimated GFR > 60.0 BUN/Creatinine Ratio 21.1 Glucose 141 H Calcium 8.3 L Iron TIBC % Saturation Transferrin Total Bilirubin 1.4 H AST 19 ALT 11 Alkaline Phosphatase 55 Lactate Dehydrogenase Total Protein 6.1 L Albumin 3.3 L Globulin 2.8 Albumin/Globulin Ratio 1.2 Vitamin B12 Folate SARS-CoV-2 (PCR) Blood Type Antibody Screen Crossmatch [facility] Medical History Community acquired bacterial pneumonia Hip pain Surgical History History of tonsillectomy Family History Father Pancreatic cancer Mother Hx of CABG Social History household members: spouse Smoking Status: Former smoker alcohol intake: current Discharge Assessment & Plan Assessment and Plan Assessment: Impression 1. Symptomatic anemia 2. Status post 2 units of blood 3. Status post EGD and colonoscopy Plan of Treatment: Patient is discharged home Recommend outpatient hematologic workup Discharge Plan Discharge Plan Patient Disposition: Home Discharge orders & Medications Follow up/Referrals: Lucy Redding PA-C [Primary Care Provider] - Nevaeh Davis MD [Physician] - (anemia, elevated IRon level? Hemachromatosis ) Diet/Activity/Treatments Diet: Diet as Tolerated Visit Report/Discharge Packet Instructions: DI for Colon Polypectomy Stand Alone Forms: Colonoscopy Result: [facility] Surg, EGD Result: [facility] Surg Discharge Data Primary Care Provider: Lucy Redding
== END 2021-09-15 16:50 | disposition home or self-care (01) ==
LOC: ED 15:26 → AC 09-15 07:03
PROVIDERS: Specialist; Admitting Provider Internal Medicine; Emergency Provider Internal Medicine; PCP Student in an Organized Health Care Education/Training Program; Referring Provider Emergency Medicine; Visit Provider Internal Medicine
PROC: 0DJ08ZZ Inspection of Upper Intestinal Tract, Via Natural or Artificial Opening Endoscopic (ICD-10-PCS; CPT 43235; principal; 2021-09-15 11:45)
PROC: 0DJD8ZZ Inspection of Lower Intestinal Tract, Via Natural or Artificial Opening Endoscopic (ICD-10-PCS; CPT 45378; 2021-09-15 11:45)
DX: R53.1 Weakness (principal); Z20.822 Contact with and (suspected) exposure to COVID-19; K57.30 Diverticulosis of large intestine without perforation or abscess without bleeding
CPT/HCPCS: 43239; 45380; 36415; 36430; 80053; 81003; 82247; 82272; 82607; 82746; 83010; 83540; 83550; 83615; 85025; 85610; 85730; 86850; 86900; 86901; 87635; 93005; 96365; 96366; 96375; 99152; 99219; 99285; C9803; G0378; P9016; C9113; J2250; J3010

== ENCOUNTER → 2021-10-12 13:31 | Outpatient (CLI) | payer OTHER, SELFPAY ==
[2021-09-15 14:50] VITALS: BMI 22.8
[2021-10-12 15:06] LABS: Folate 8.1 ng/mL (2.76-20.0)
== END ==
PROVIDERS: PCP Student in an Organized Health Care Education/Training Program; Referring Provider Internal Medicine Medical Oncology; Visit Provider Internal Medicine Medical Oncology
DX: D50.9 Iron deficiency anemia, unspecified
CPT/HCPCS: 36415; 82746; 88184

== ENCOUNTER 2021-10-24 09:57 | Inpatient (IN) | payer OTHER, SELFPAY ==
[2021-09-15 14:50] VITALS: BMI 22.8
[2021-10-24] VITALS (24 sets, daily range): BP systolic 132–152; BP diastolic 57–67; PULSE 90–107; RESP 18–30; TEMP 36.9–38.2; O2SAT 90–99; BMI 24.2
--- NOTE | 2021-10-24 10:35 | PC.NURSE ---
Pt c/o abd pulsating 8/10 pain. MD advised. Bilateral pulses and pressure taken R=152/64, L=140/57 pulse 89
--- NOTE | 2021-10-24 11:09 | DI.US.S_ITS ---
PROCEDURE: US RENAL COMPLETE INDICATIONS: PAIN TECHNIQUE: Real-time scanning was performed of the kidneys and bladder, with image documentation. COMPARISON: None. FINDINGS: Kidneys: Kidneys are normal in size. Right kidney measures 9.5 cm long; left kidney measures 12.5 cm long. Right renal cortical thickness is 1.6 cm; left renal cortical thickness is 1.8 cm. Renal cortical echotexture is normal. No hydronephrosis or nephrolithiasis. No suspicious solid mass lesions. Bladder: Urinary bladder is decompressed. Miscellaneous: Minimal amount of free fluid is seen in right and left lower quadrant abdomen. IMPRESSION: No renal stone or hydronephrosis. No gross abnormality is seen in decompressed urinary bladder. Trace amount of free fluid in bilateral lower quadrant abdomen. Dictated by: Abdirahman Daniels M.D. on 10/24/2021 at 12:39 Approved by: Abdirahman Daniels M.D. on 10/24/2021 at 12:40
--- NOTE | 2021-10-24 11:11 | ED_ITS ---
HPI - Abdominal Pain General Chief Complaint: Abdominal Pain Stated Complaint: Abd cramps, incontinence, coughing blood Time Seen by Provider: 10/24/21 10:50 Source: patient and family Mode of arrival: Family Vehicle History of Present Illness HPI narrative: Patient here with family/ for abdominal pain. Had 1 episode of blood-tinged emesis this morning. Patient seen at [facility] yesterday for blood transfusion in the emergency department was discharged home. CT scan imaging of abdomen pelvis was done and revealed inflammation around the adrenal glands. Patchy areas of opacity in the lungs suggestive of pneumonia. Thickened appearance of: With minimal stranding around the left colon. Early colitis possible. No antibiotics started. Also, patient states she was bit in right forearm by her pet cat 3 days ago. Has had bruising around it. No discharge. No cellulitis. No fever. History of anemia. Followed by Dr. Rivas with hematology/oncology. Hemoccult negative yesterday on rectal exam. Medical records were faxed to us. She did have EGD and colonoscopy last September. Two thousand twenty-one. She is being evaluated for leukemia. Hematology-Oncology was contacted yesterday. General surgery was contacted yesterday as well. Received 1 unit of blood yesterday. Hemoglobin yesterday was 7.2 prior to transfusion. History of alcohol use. Last alcohol 1 month ago. Drinks 4-6 beers nightly Related Data Previous Rx's Medication Instructions Recorded levofloxacin 750 mg tablet 750 mg PO DAILY #7 tab 10/27/21 Allergies Allergy/AdvReac Type Severity Reaction Status Date / Time No Known Drug Allergies Allergy Verified 10/24/21 12:10 Review of Systems Review of Systems Narrative: GENERAL: Denies chills, fatigue, malaise, fever, sweats. HEENT: Denies sinus pain, ear pain, sore throat RESPIRATORY: Denies dyspnea, cough CARDIOVASCULAR: Denies chest pain, palpitations GASTROINTESTINAL: positive nausea, vomiting, abdominal pain : Denies dysuria, frequency, hematuria MUSCULOSKELETAL: denies muscle or bony pain SKIN: Denies rash, skin lesions, positive injury NEUROLOGIC: Denies weakness, numbness ROS Unobtainable: All systems reviewed & are unremarkable except as noted in HPI and below Patient History Medical History Community acquired bacterial pneumonia Hip pain Surgical History History of tonsillectomy Family History Father Pancreatic cancer Mother Hx of CABG Social History household members: spouse and family Smoking Status: Former smoker alcohol intake: former Smoking Status: Former smoker alcohol intake frequency: 3 or more drinks per day Substance Use Type: does not use Exam Narrative Exam Narrative: GENERAL: in no distress, not toxic not dyspneic HEAD: Normocephalic. EYES: Pupils equal round No scleral icterus. ENT: Mucous membranes moist. NECK: Trachea midline. CARDIOVASCULAR: Regular rate and rhythm without murmurs RESPIRATORY: Clear to auscultation. Breath sounds equal bilaterally. No wheezes, rales, or rhonchi. GASTROINTESTINAL: Abdomen soft, Mild diffuse tenderness, no peritoneal signs, bowel sounds present. No bruising seen. EXTREMITIES: No gross deformities. BACK: No flank tenderness. NEURO: AOx4. SKIN: Warm and dry, Examination skin of the forearm. Puncture wound noted with surrounding ecchymosis but no discharge. Mild tender but not out of proportion to exam. Strong radial pulse and patient services coordinator in light touch intact to fingers and thumb. No red streaking. PSYCH: Not anxious, is cooperative Initial Vital Signs Initial Vital Signs: Vital Signs Pulse Oximetry 93 10/24/21 10:05 Course Course Course Narrative: No new issues during course of stay. Orders Ordered: Discontinued Medications Acetaminophen (Acetaminophen 325 Mg Tablet) 650 mg PO Q6HR PRN PRN Reason: Fever/Mild Pain (1-3) Last Admin: 10/24/21 21:04 Dose: 650 mg Documented by: TOMAS Al Hydrox/Mg Hydrox/Simethicone (Mag Hydrox/Alum/Simeth 30 Ml Udc) 30 ml PO Q6HR PRN PRN Reason: Dyspepsia Amoxicillin/Clavulanate Potassium (Amoxicillin/Clav 875/125 Mg) 1 tab PO NOW ONE Stop: 10/24/21 11:09 Last Admin: 10/24/21 11:26 Dose: 1 tab Documented by: NORMA Amoxicillin/Clavulanate Potassium (Amoxicillin/Clav 875/125 Mg) 1 tab PO BID CARMELINA Stop: 10/28/21 21:01 Diphtheria/Tetanus/Acell Pertussis (Tet,Diph,Pertuss(Acell),Vac/Pf 0.5 Ml Syringe) 0.5 ml IM .ONCE ONE Stop: 10/24/21 11:08 Last Admin: 10/24/21 12:17 Dose: Not Given Documented by: NAVEEN Enoxaparin Sodium (Enoxaparin 40 Mg/0.4 Ml Syringe) 40 mg SUBCUT DAILY [facility] Last Admin: 10/27/21 09:24 Dose: 40 mg Documented by: Admin: 10/26/21 09:01 Dose: 40 mg Documented by: Admin: 10/25/21 09:43 Dose: 40 mg Documented by: ARMIN Hydromorphone HCl (Hydromorphone 0.5 Mg Inj) 0.5 mg IV Q30MIN PRN PRN Reason: Pain, Severe (7-10) Stop: 10/25/21 12:59 Last Admin: 10/25/21 01:34 Dose: 0.5 mg Documented by: Admin: 10/24/21 13:05 Dose: 0.5 mg Documented by: STONE Sodium Chloride (Normal Saline 0.9%) 500 mls @ 1,000 mls/hr IV BOLUS ONE Stop: 10/24/21 12:44 Last Infusion: 10/24/21 13:00 Dose: 0 mls/hr Documented by: Admin: 10/24/21 12:18 Dose: 1,000 mls/hr Documented by: NAVEEN Sodium Chloride (Normal Saline 0.9%) 1,000 mls @ 100 mls/hr IV CONT [facility] Last Infusion: 10/24/21 20:31 Dose: 0 mls/hr Documented by: Admin: 10/24/21 17:00 Dose: 100 mls/hr Documented by: ROSALINDW Cefepime HCl 2 gm/ Sodium (Chloride) 100 mls @ 200 mls/hr IV Q8H [facility] Last Infusion: 10/27/21 09:53 Dose: 0 mls/hr Documented by: Admin: 10/27/21 09:23 Dose: 200 mls/hr Documented by: Infusion: 10/27/21 04:35 Dose: 0 mls/hr Documented by: Admin: 10/27/21 01:42 Dose: 200 mls/hr Documented by: Infusion: 10/26/21 17:24 Dose: 0 mls/hr Documented by: Admin: 10/26/21 16:54 Dose: 200 mls/hr Documented by: Infusion: 10/26/21 09:30 Dose: 0 mls/hr Documented by: Admin: 10/26/21 08:59 Dose: 200 mls/hr Documented by: Infusion: 10/26/21 02:06 Dose: 0 mls/hr Documented by: Admin: 10/26/21 01:15 Dose: 200 mls/hr Documented by: Infusion: 10/25/21 18:06 Dose: 0 mls/hr Documented by: Admin: 10/25/21 16:17 Dose: 125 mls/hr Documented by: Infusion: 10/25/21 11:09 Dose: 0 mls/hr Documented by: Admin: 10/25/21 09:44 Dose: 100 mls/hr Documented by: Infusion: 10/25/21 05:52 Dose: 0 mls/hr Documented by: Admin: 10/25/21 00:52 Dose: 200 mls/hr Documented by: Infusion: 10/24/21 18:05 Dose: 0 mls/hr Documented by: Admin: 10/24/21 17:33 Dose: 200 mls/hr Documented by: NAVEEN POTASSIUM CHLORIDE IN WATER (Potassium Cl 10 Meq/100 Ml Yaneth) 10 meq in 100 mls @ 100 mls/hr IV Q1H CARMELINA Stop: 10/24/21 21:29 Last Admin: 10/24/21 23:04 Dose: Not Given Documented by: Infusion: 10/24/21 23:04 Dose: 0 mls/hr Documented by: Admin: 10/24/21 23:03 Dose: Not Given Documented by: Admin: 10/24/21 21:20 Dose: 100 mls/hr Documented by: Infusion: 10/24/21 20:31 Dose: 0 mls/hr Documented by: Admin: 10/24/21 19:24 Dose: 100 mls/hr Documented by: ROSALINDW Metronidazole (Flagyl) 500 mg in 100 mls @ 100 mls/hr IV Q8H [facility] Last Infusion: 10/26/21 12:10 Dose: 0 mls/hr Documented by: Admin: 10/26/21 11:10 Dose: 100 mls/hr Documented by: Infusion: 10/26/21 03:55 Dose: 0 mls/hr Documented by: Admin: 10/26/21 02:53 Dose: 100 mls/hr Documented by: Infusion: 10/25/21 19:05 Dose: 0 mls/hr Documented by: Admin: 10/25/21 18:05 Dose: 100 mls/hr Documented by: Infusion: 10/25/21 12:41 Dose: 0 mls/hr Documented by: Admin: 10/25/21 11:09 Dose: 100 mls/hr Documented by: Infusion: 10/25/21 05:53 Dose: 0 mls/hr Documented by: Admin: 10/25/21 02:35 Dose: 100 mls/hr Documented by: Infusion: 10/24/21 20:31 Dose: 0 mls/hr Documented by: Admin: 10/24/21 19:24 Dose: 100 mls/hr Documented by: STONE Azithromycin 500 mg/ Dextrose 250 mls @ 250 mls/hr IV Q24H [facility] Last Infusion: 10/26/21 00:50 Dose: 0 mls/hr Documented by: Admin: 10/25/21 23:49 Dose: 250 mls/hr Documented by: Infusion: 10/24/21 23:08 Dose: 0 mls/hr Documented by: Admin: 10/24/21 21:15 Dose: 250 mls/hr Documented by: TOMAS POTASSIUM CHLORIDE IN WATER (Potassium Cl 10 Meq/100 Ml Yaneth) 10 meq in 100 mls @ 100 mls/hr IV Q1H [facility] Stop: 10/25/21 00:59 Last Admin: 10/25/21 00:42 Dose: 100 mls/hr Documented by: Infusion: 10/25/21 00:07 Dose: 100 mls/hr Documented by: Admin: 10/24/21 23:07 Dose: 100 mls/hr Documented by: TOMAS Azithromycin 500 mg/ Dextrose 250 mls @ 250 mls/hr IV Q24H CARMELINA Last Infusion: 10/27/21 01:46 Dose: 0 mls/hr Documented by: Admin: 10/26/21 23:58 Dose: 200 mls/hr Documented by: ROSAURA Sodium Chloride (Normal Saline 0.9%) 250 mls @ 21 mls/hr IV Q24H PRN PRN Reason: Flush Last Infusion: 10/27/21 02:30 Dose: 0 mls/hr Documented by: Admin: 10/27/21 00:00 Dose: 21 mls/hr Documented by: ROSAURA Magnesium Hydroxide (Magnesium Hydroxide 30 Ml Udc) 30 ml PO DAILY PRN PRN Reason: Constipation Morphine Sulfate (Morphine 4 Mg/Ml Inj) 2 mg IV NOW ONE Stop: 10/24/21 11:09 Last Admin: 10/24/21 11:25 Dose: 2 mg Documented by: NORMA Morphine Sulfate (Morphine 4 Mg/Ml Inj) 4 mg IV NOW ONE Stop: 10/24/21 12:09 Last Admin: 10/24/21 12:17 Dose: 4 mg Documented by: NAVEEN Morphine Sulfate (Morphine 2 Mg/Ml Inj) 2 mg IV Q4HR PRN PRN Reason: Pain, Moderate (4-6) Naloxone HCl (Naloxone 0.4 Mg/Ml Vial) 0.2 mg IV Q2MIN PRN PRN Reason: Opiate Reversal Ondansetron HCl (Ondansetron 4 Mg/2 Ml Inj) 4 mg IV NOW ONE Stop: 10/24/21 11:09 Last Admin: 10/24/21 11:25 Dose: 4 mg Documented by: NORMA Ondansetron HCl (Ondansetron 4 Mg/2 Ml Inj) 4 mg IV Q4HR PRN PRN Reason: Nausea And Vomiting Oxycodone HCl (Oxycodone Ir 5 Mg Tablet) 5 mg PO Q6HR PRN PRN Reason: Pain, Moderate (4-6) Last Admin: 10/24/21 21:03 Dose: 5 mg Documented by: TOMAS Oxycodone HCl (Oxycodone Ir 5 Mg Tablet) 5 mg PO Q4HR PRN PRN Reason: Pain, Moderate (4-6) Last Admin: 10/27/21 01:45 Dose: 5 mg Documented by: Admin: 10/26/21 21:05 Dose: 5 mg Documented by: Admin: 10/26/21 16:54 Dose: 5 mg Documented by: Admin: 10/26/21 11:10 Dose: 5 mg Documented by: Admin: 10/26/21 06:30 Dose: 5 mg Documented by: Admin: 10/26/21 03:00 Dose: 5 mg Documented by: Admin: 10/25/21 22:26 Dose: 5 mg Documented by: Admin: 10/25/21 18:05 Dose: 5 mg Documented by: Admin: 10/25/21 13:03 Dose: 5 mg Documented by: Admin: 10/25/21 09:42 Dose: 5 mg Documented by: Admin: 10/25/21 05:32 Dose: 5 mg Documented by: Admin: 10/25/21 00:50 Dose: 5 mg Documented by: NEO Potassium Chloride (Potassium Chloride 20 Meq Tab) 40 meq PO Q6H [facility] Stop: 10/27/21 16:46 Last Admin: 10/27/21 17:13 Dose: 40 meq Documented by: Admin: 10/27/21 11:17 Dose: 40 meq Documented by: KING Sodium Chloride (Sodium Chloride 0.9% Flush) 10 ml IV PRN PRN PRN Reason: Flush Sodium Chloride (Sodium Chloride 0.9% Flush) 10 ml IV BID [facility] Last Admin: 10/27/21 09:24 Dose: 10 ml Documented by: Admin: 10/26/21 21:05 Dose: 10 ml Documented by: ROSAURA Reevaluation(s) Reevaluation #1: Spoke with patient results. Agrees for admit. Time: 14:51 Consultations Consultation #1: Spoke with hospitalist, Dr. Chacon, will admit patient Time: 14:51 Vital Signs Vital signs: Vital Signs - 8 hr 10/24/21 10:05 10/24/21 10:06 10/24/21 10:15 Temperature Pulse Rate 101 H 97 H Respiratory Rate 24 Blood Pressure 152/67 H 140/57 L Pulse Oximetry 93 97 96 10/24/21 10:27 10/24/21 10:30 10/24/21 10:32 Temperature 98.4 F 98.4 F Pulse Rate 93 H 92 H 93 H Respiratory Rate 18 22 18 Blood Pressure 152/67 H 134/63 140/57 L Pulse Oximetry 95 94 95 10/24/21 11:00 10/24/21 11:30 10/24/21 12:00 Temperature Pulse Rate 90 93 H 95 H Respiratory Rate 23 22 22 Blood Pressure 136/63 147/65 H Pulse Oximetry 95 94 94 10/24/21 12:35 10/24/21 12:36 10/24/21 13:00 Temperature Pulse Rate 107 H 105 H 102 H Respiratory Rate 19 30 H 26 H Blood Pressure 152/66 H 148/65 H Pulse Oximetry 99 95 93 MDM - Abdominal Pain Differential Diagnosis Differential diagnosis: Likely abdominal pain, acute appendicitis, constipation, diverticulitis, pancreatitis and small bowel obstruction Lab Data Result diagrams: 10/27/21 04:48 10/27/21 04:48 Labs: Lab Results 10/24/21 10/24/21 10/24/21 Range/Units 11:00 11:00 11:00 WBC 10.6 (4.5-11.0) X10^3/uL RBC 3.50 L (4.0-5.2) X10^6/uL Hgb 9.4 L (12.0-16.0) g/dL Hct 27.8 L (36-46) % MCV 79.4 L (80-100) fL MCH 26.8 (26-34) PG MCHC 33.8 (30-36) % RDW 21.4 H (11.6-14.8) % Plt Count 255 (150-400) X10^3/uL Neut % (Auto) Not Reportable Lymph % (Auto) Not Reportable [place] % (Auto) Not Reportable Eos % (Auto) Not Reportable Baso % (Auto) Not Reportable Lymph # (Auto) Not Reportable [place] # (Auto) Not Reportable Baso # (Auto) Not Reportable Total Counted 100 Seg Neutrophils % 43.0 (38-70) % Band Neutrophils % 15.0 H (3-7) % Lymphocytes % (Manual) 30.0 (25-45) % Atypical Lymphs % 3.0 H ( - 0) % Monocytes % (Manual) 3.0 (2-11) % Eosinophils % (Manual) 1.0 L (2-4) % Metamyelocytes % 5.0 H (-0) % Neutrophils # (Manual) 6148 H (0223-1973) /uL RBC Morphology Not Reportable Anisocytosis 2+ H Sodium 134 L (137-145) mmol/L Potassium 3.3 L (3.4-5.1) mmol/L Chloride 98 (98-107) mmol/L Carbon Dioxide 29 (22-32) mmol/L BUN 14 (7-17) mg/dL Creatinine 0.54 (0.52-1.04) mg/dL Estimated GFR > 60.0 (>60) mL/min BUN/Creatinine Ratio 25.9 H (6-22) Glucose 123 H (80-110) mg/dL Calcium 9.0 (8.4-10.2) mg/dL Magnesium 2.0 (1.6-2.3) mg/dL Total Bilirubin 0.7 (0.2-1.3) mg/dL AST 24 (14-36) IU/L ALT 18 (<35) IU/L Alkaline Phosphatase 112 (38-126) U/L Total Protein 7.0 (6.3-8.2) g/dL Albumin 3.5 (3.5-5.0) g/dL Globulin 3.5 (1.7-4.1) g/dL Albumin/Globulin Ratio 1.0 (1.0-2.8) Lipase 1649 H (23-300) U/L Urine Color Urine Appearance Urine pH (4.5-8.0) Ur Specific [place] (1.000-1.035) Urine Protein (Negative) Urine Glucose (UA) (Negative) g/dL Urine Ketones (NEGATIVE) Urine Occult Blood (Negative) Urine Nitrate (Negative) Urine Bilirubin (NEGATIVE) Ur Bilirubin Confirm (Negative) Urine Urobilinogen (0.2) E.U./dL Ur Leukocyte Esterase (NEGATIVE) Urine RBC (0-5/HPF) Urine WBC (0-5/HPF) Ur Squamous Epith Cells (0-5/HPF) Urine Bacteria (None) Hyaline Casts (None) Granular Casts (None) Urine Mucus (Negative) Ur Culture Indicated? SARS-CoV-2 (PCR) (Negative) 10/24/21 10/24/21 Range/Units 12:39 15:08 WBC (4.5-11.0) X10^3/uL RBC (4.0-5.2) X10^6/uL Hgb (12.0-16.0) g/dL Hct (36-46) % MCV (80-100) fL MCH (26-34) PG MCHC (30-36) % RDW (11.6-14.8) % Plt Count (150-400) X10^3/uL Neut % (Auto) Lymph % (Auto) [place] % (Auto) Eos % (Auto) Baso % (Auto) Lymph # (Auto) [place] # (Auto) Baso # (Auto) Total Counted Seg Neutrophils % (38-70) % Band Neutrophils % (3-7) % Lymphocytes % (Manual) (25-45) % Atypical Lymphs % ( - 0) % Monocytes % (Manual) (2-11) % Eosinophils % (Manual) (2-4) % Metamyelocytes % (-0) % Neutrophils # (Manual) (6728-8090) /uL RBC Morphology Anisocytosis Sodium (137-145) mmol/L Potassium (3.4-5.1) mmol/L Chloride (98-107) mmol/L Carbon Dioxide (22-32) mmol/L BUN (7-17) mg/dL Creatinine (0.52-1.04) mg/dL Estimated GFR (>60) mL/min BUN/Creatinine Ratio (6-22) Glucose (80-110) mg/dL Calcium (8.4-10.2) mg/dL Magnesium (1.6-2.3) mg/dL Total Bilirubin (0.2-1.3) mg/dL AST (14-36) IU/L ALT (<35) IU/L Alkaline Phosphatase (38-126) U/L Total Protein (6.3-8.2) g/dL Albumin (3.5-5.0) g/dL Globulin (1.7-4.1) g/dL Albumin/Globulin Ratio (1.0-2.8) Lipase (23-300) U/L Urine Color Yellow Urine Appearance Clear Urine pH 5.5 (4.5-8.0) Ur Specific [place] 1.010 (1.000-1.035) Urine Protein 2+ H (Negative) Urine Glucose (UA) Trace H (Negative) g/dL Urine Ketones 1+ H (NEGATIVE) Urine Occult Blood Trace-intact (Negative) Urine Nitrate Negative (Negative) Urine Bilirubin 2+ H (NEGATIVE) Ur Bilirubin Confirm Negative (Negative) Urine Urobilinogen 1.0 (0.2) E.U./dL Ur Leukocyte Esterase Negative (NEGATIVE) Urine RBC 0-1/hpf (0-5/HPF) Urine WBC 1-5/hpf (0-5/HPF) Ur Squamous Epith Cells 1-5 /hpf (0-5/HPF) Urine Bacteria Few (2-10) H (None) Hyaline Casts 0-1/lpf (None) Granular Casts 0-1/lpf (None) Urine Mucus 2+ H (Negative) Ur Culture Indicated? Cult not indicated SARS-CoV-2 (PCR) Negative (Negative) Imaging Data CT scan - abdomen/pelvis: Radiologist's Impression: [place] [address] CT Scan Report Signed Patient: Lizzette Flynn MR#: [id number] : 1950 Acct:[id number] Age/Sex: 71 / F Date of Service: 10/24/21 Loc: ED Accession Number: [id number] ?? Procedure: CT abdomen pelvis w con Ordering Provider: Alexsander Wassermna MD PROCEDURE:? CT ABDOMEN PELVIS W CON ? INDICATIONS:? IV contrast only/abdominal pain ? TECHNIQUE:? After the administration of intravenous contrast, axial sections acquired from the lung bases to the pubic symphysis.? Coronal and sagittal reformats were performed.? For radiation dose reduction, the following was used:? automated exposure control, adjustment of mA and/or kV according to patient size.? ? COMPARISON:? [facility], CT, CT ABDOMEN PELVIS WITH CONTRAST, 10/23/2021, 11:36. ? FINDINGS:? Image quality:? Excellent.? ? Lung bases:? Trace bilateral pleural effusions are seen with atelectasis of the lung bases.? Ground-glass opacities are redemonstrated in the right lung that may represent pneumonia or edema. Heart:? No significant findings. ? ABDOMEN: Liver:? Low-density lesion in the posterior left hepatic lobe is most likely a cyst. Gallbladder:? There is vacuum disc extrusion of contrast material in the gallbladder. Biliary ducts:? Unremarkable.? ? Pancreas:? Pancreas divisum is as only noted, a normal variant. Spleen:? Unremarkable.? ? Adrenal Glands:? Left greater than right adrenal thickening with surrounding inflammatory fat stranding is redemonstrated, which does not appear significantly changed when compared to the CT from 10/23/2021. Kidneys and Ureters:? Unremarkable.? ? ? Stomach and Bowel:? Apparent bowel wall thickening in the transverse, descending, and sigmoid colon may be secondary to underdistention or mild colitis.? The cecum is located in the right anterior abdomen somewhat superiorly. Peritoneum:? There is a small volume of ascites.? No pneumoperitoneum. ? Ventral Wall: ? No hernias.? Abdominal Nodes:? No retroperitoneal or mesenteric adenopathy by size criteria.? Vessels:? Aorta and inferior vena cava are normal in size.? ? PELVIS: Pelvic Organs:? 2.3 cm right ovarian cyst is redemonstrated..? ? Bladder:? Unremarkable.? ? Pelvic Nodes: No enlarged lymph nodes.? Miscellaneous: No hernias are seen. ? ? ? Bones:? Healed right posterior rib fractures are partially imaged.? Chronic L1 compression fracture does not appear significantly changed.? Right superior and inferior pubic rami fractures appear healed.? Heterogeneous appearance of the marrow spaces is seen diffusely with mild loss of trabecular markings. ? ? IMPRESSION:? 1. Thickening of the adrenal glands with surrounding inflammatory fat stranding does not appear significantly changed when compared to the CT from the day prior. ? 2. Ground-glass opacities and trace pleural effusions are seen in the lung bases that may represent pneumonia or edema. ? 3. Mild bowel wall thickening throughout the transverse and left colon is most likely secondary to underdistention, but a mild colitis could appear similarly. ? 4. Interval development of a small volume of ascites throughout the abdomen and pelvis. ? 5. Stable right ovarian cyst. ? 6. Mildly increased density of the marrow spaces throughout the visualized osseous structures with subtle loss of trabecular markings is of uncertain etiology.? Findings could represent a diffuse marrow replacing process such as leukemia, multiple myeloma, or metastatic disease versus reactive marrow or a diffuse metabolic process. Recommend correlation with clinical history and laboratory findings.? ? Dictated by: Mihir Hawthorne M.D. on 10/24/2021 at 12:58 ? ? Approved by: Mihir Hawthorne M.D. on 10/24/2021 at 13:14 ? US - abdomen: Radiologist's Impression: [address] [address] Ultrasound Report Signed Patient: Lizzette Flynn MR#: [id number] : 1950 Acct:[id number] Age/Sex: 71 / F Date of Service: 10/24/21 Loc: ED Accession Number: [id number] ?? Procedure: US renal complete Ordering Provider: Alexsander Wasserman MD PROCEDURE:? US RENAL COMPLETE ? INDICATIONS:? PAIN ? TECHNIQUE:? Real-time scanning was performed of the kidneys and bladder, with image document ation.? ? COMPARISON:? None. ? FINDINGS:? ? Kidneys:? Kidneys are normal in size.? Right kidney measures 9.5 cm long; left kidney measures 12.5 cm long.? Right renal cortical thickness is 1.6 cm; left renal cortical thickness is 1.8 cm.? Renal cortical echotexture is normal.? No hydronephrosis or nephrolithiasis.? No suspicious solid mass lesions.? ? Bladder:? Urinary bladder is decompressed. ? Miscellaneous:? Minimal amount of free fluid is seen in right and left lower quadrant abdomen. ? IMPRESSION:? No renal stone or hydronephrosis.? No gross abnormality is seen in decompressed urinary bladder.? Trace amount of free fluid in bilateral lower quadrant abdomen. ? ? Dictated by: Abdirahman Daniels M.D. on 10/24/2021 at 12:39 ? ? Approved by: Abdirahman Daniels M.D. on 10/24/2021 at 12:40 ? MDM Narrative Medical decision making narrative: Appropriate for admission for pain control. Patient has non radiographic pancreatitis. Normal lipase history a 59 at [facility] emergency department. CT unchanged from yesterday. Patient agrees for admit. Spoke with hospitalist and agrees for admit. Cat bite injury treated with antibiotic Discharge Plan Departure Patient Disposition: Admitted as Observation Clinical Impression: Pancreatitis Admit Date/Time: 10/24/21 16:00 Admit Provider: Oscar Chacon
[2021-10-24 11:13] LABS: Hematocrit 27.8 % (36-46); Hemoglobin 9.4 g/dL (12.0-16.0); Mean Corpuscular HGB Conc 33.8 % (30-36); Mean Corpuscular Hemoglobin 26.8 PG (26-34); Mean Corpuscular Volume 79.4 fL (80-100); Platelet Count 255 X10^3/uL (150-400); Red Cell Distribution Width 21.4 % (11.6-14.8); White Blood Cell Count 10.6 X10^3/uL (4.5-11.0)
[2021-10-24 11:24] LABS: Add Manual Diff / Slide Review YES
[2021-10-24] MEDS: ONDANSETRON 4 MG/2 ML INJ IV (11:25)
[2021-10-24] MEDS: MORPHINE 4 MG/ML INJ 2 MG IV (11:25)
[2021-10-24] MEDS: AMOXICILLIN/CLAV 875/125 MG 1 TAB PO (11:26)
[2021-10-24 11:30] LABS: Alanine Aminotransferase 18 IU/L (<35); Albumin 3.5 g/dL (3.5-5.0); Alkaline Phosphatase 112 U/L (38-126); Aspartate Aminotransferase 24 IU/L (14-36); BUN Creatinine Ratio 25.9 (6-22); Bilirubin Total 0.7 mg/dL (0.2-1.3); Blood Urea Nitrogen 14 mg/dL (7-17); Carbon Dioxide 29 mmol/L (22-32); Chloride 98 mmol/L (98-107); Estimated Glomerular Filt Rate > 60.0 mL/min (>60); Globulin 3.5 g/dL (1.7-4.1); Glucose 123 mg/dL (80-110); HEMOLYSIS < 15 (0-50); Lipase 1649 U/L (23-300); Potassium 3.3 mmol/L (3.4-5.1); Sodium 134 mmol/L (137-145)
[2021-10-24 11:46] LABS: Anisocytosis 2+; Neutrophils Absolute Manual 6148 /uL (3000-5900); Total Cells Counted 100
[2021-10-24] MEDS: MORPHINE 4 MG/ML INJ IV (12:17)
[2021-10-24] MEDS: SODIUM CHLORIDE 0.9% 500 ML 1000 ML IV (12:18)
--- NOTE | 2021-10-24 12:27 | DI.CT.S_ITS ---
PROCEDURE: CT ABDOMEN PELVIS W CON INDICATIONS: IV contrast only/abdominal pain TECHNIQUE: After the administration of intravenous contrast, axial sections acquired from the lung bases to the pubic symphysis. Coronal and sagittal reformats were performed. For radiation dose reduction, the following was used: automated exposure control, adjustment of mA and/or kV according to patient size. COMPARISON: [facility], CT, CT ABDOMEN PELVIS WITH CONTRAST, 10/23/2021, 11:36. FINDINGS: Image quality: Excellent. Lung bases: Trace bilateral pleural effusions are seen with atelectasis of the lung bases. Ground-glass opacities are redemonstrated in the right lung that may represent pneumonia or edema. Heart: No significant findings. ABDOMEN: Liver: Low-density lesion in the posterior left hepatic lobe is most likely a cyst. Gallbladder: There is vacuum disc extrusion of contrast material in the gallbladder. Biliary ducts: Unremarkable. Pancreas: Pancreas divisum is as only noted, a normal variant. Spleen: Unremarkable. Adrenal Glands: Left greater than right adrenal thickening with surrounding inflammatory fat stranding is redemonstrated, which does not appear significantly changed when compared to the CT from 10/23/2021. Kidneys and Ureters: Unremarkable. Stomach and Bowel: Apparent bowel wall thickening in the transverse, descending, and sigmoid colon may be secondary to underdistention or mild colitis. The cecum is located in the right anterior abdomen somewhat superiorly. Peritoneum: There is a small volume of ascites. No pneumoperitoneum. Ventral Wall: No hernias. Abdominal Nodes: No retroperitoneal or mesenteric adenopathy by size criteria. Vessels: Aorta and inferior vena cava are normal in size. PELVIS: Pelvic Organs: 2.3 cm right ovarian cyst is redemonstrated.. Bladder: Unremarkable. Pelvic Nodes: No enlarged lymph nodes. Miscellaneous: No hernias are seen. Bones: Healed right posterior rib fractures are partially imaged. Chronic L1 compression fracture does not appear significantly changed. Right superior and inferior pubic rami fractures appear healed. Heterogeneous appearance of the marrow spaces is seen diffusely with mild loss of trabecular markings. IMPRESSION: 1. Thickening of the adrenal glands with surrounding inflammatory fat stranding does not appear significantly changed when compared to the CT from the day prior. 2. Ground-glass opacities and trace pleural effusions are seen in the lung bases that may represent pneumonia or edema. 3. Mild bowel wall thickening throughout the transverse and left colon is most likely secondary to underdistention, but a mild colitis could appear similarly. 4. Interval development of a small volume of ascites throughout the abdomen and pelvis. 5. Stable right ovarian cyst. 6. Mildly increased density of the marrow spaces throughout the visualized osseous structures with subtle loss of trabecular markings is of uncertain etiology. Findings could represent a diffuse marrow replacing process such as leukemia, multiple myeloma, or metastatic disease versus reactive marrow or a diffuse metabolic process. Recommend correlation with clinical history and laboratory findings. Dictated by: Mihir Hawthorne M.D. on 10/24/2021 at 12:58 Approved by: Mihir Hawthorne M.D. on 10/24/2021 at 13:14
[2021-10-24] MEDS: HYDROMORPHONE 0.5 MG INJ IV (13:05)
[2021-10-24 13:42] LABS: COVID19 - ADMIT (NP swab/PCR) Negative (Negative)
[2021-10-24 15:11] LABS: Appearance Urine UA CLEAR; Bilirubin Urine UA 2+ (NEGATIVE); Color Urine UA YELLOW; Glucose Urine UA TRACE g/dL (Negative); Ketones Urine UA 1+ (NEGATIVE); Leukocyte Esterase Urine UA NEGATIVE (NEGATIVE); Nitrite Urine UA NEGATIVE (Negative); Occult Blood Urine UA TRACE-INTACT (Negative); Protein Urine UA 2+ (Negative); pH Urine UA 5.5 (4.5-8.0)
[2021-10-24 15:33] LABS: Bacteria Urine Few (2-10); Culture Indicated Urine Cult Not Indicated; Granular Casts Urine 0-1/LPF; Hyaline Casts Urine 0-1/LPF; Ictotest Urine Negative (Negative); Mucus Urine 2+ (Negative); RBC Urine 0-1/HPF (0-5/HPF); Squamous Epithelial Cell Urine 1-5 /HPF (0-5/HPF); WBC Urine 1-5/HPF (0-5/HPF)
--- NOTE | 2021-10-24 16:18 | DI.CT.S_ITS ---
PROCEDURE: CT CHEST W CON INDICATIONS: CXR abnormality, r/o malignancy TECHNIQUE: After the administration of intravenous contrast, 5 mm thick sections acquired from the pulmonary apices to the posterior costophrenic angles. 1 mm axial lung, 5 mm thick coronal and sagittal reformats and 7 mm axial MIP were acquired. For radiation dose reduction, the following was used: automated exposure control, adjustment of mA and/or kV according to patient size. COMPARISON: [facility], CR, XR CHEST 1 VIEW, 10/23/2021, 14:00. FINDINGS: Image quality: Excellent. Lungs and pleura: There are patchy areas of interstitial opacity within the right lung with areas appearing almost ground-glass in appearance. In addition, there are superimposed areas of more solid nodular like opacity most notable in the right middle lobe. Similar appearance is present within the left base although less severe when compared to the right. Mediastinum: Heart size is enlarged with minimal pericardial effusion. No mediastinal or hilar adenopathy by size criteria. Thoracic aorta and central pulmonary arteries are normal in size. Esophagus is normal in caliber. No hiatal hernia. Bones and chest wall: No suspicious bony lesions. No vertebral body compression fractures. No axillary or supraclavicular adenopathy by size criteria. Thyroid gland is unremarkable . Abdomen: Minimal perihepatic fluid is present. There is partially visualized thickening of the adrenal glands with surrounding inflammatory change. Otherwise, visualized upper abdominal solid organs appear normal. Upper abdominal bowel loops are normal in caliber. IMPRESSION: 1. Interstitial opacities appearing ground-glass as well as nodular within the lungs bilaterally predominantly on the right as described above. Overall appearance appears most suggestive of infection/inflammation. Recommend short interval imaging follow-up after appropriate therapy to document resolution. 2. Partially visualized inflammatory changes within the adrenal glands, unchanged within limited visualized portions. 3. Minimal perihepatic fluid. Dictated by: Rossy Colon M.D. on 10/24/2021 at 17:18 Approved by: Rossy Colon M.D. on 10/24/2021 at 17:21
--- NOTE | 2021-10-24 16:19 | DI.US.S_ITS ---
PROCEDURE: US ABDOMEN LIMITED INDICATIONS: RULE OUT GALLSTONES TECHNIQUE: Real-time focused scanning was performed of the abdomen, with image documentation. COMPARISON: [facility], CT, CT ABDOMEN PELVIS W CON, 10/24/2021, 12:33. FINDINGS: Normally distended gallbladder. No sludge or gallstone. No gallbladder wall thickening or pericholecystic fluid. Small volume perihepatic ascites as seen on recent CT. Small left hepatic lobe hypodensity seen on recent CT appears to represent a small cyst. IMPRESSION: No cholecystitis or cholelithiasis. Dictated by: Behzad Abernathy M.D. on 10/24/2021 at 16:13 Approved by: Behzad Abernathy M.D. on 10/24/2021 at 16:15
--- NOTE | 2021-10-24 16:24 | PM.HP.1 ---
History of Present Illness History of Present Illness Date Patient Seen: 10/24/21 Time Patient Seen: 15:30 Chief complaint: Abd pain, N/V Narrative: Patient is a 71-year-old female with history of tobacco use, alcohol abuse, recent discovery of severe anemia of undetermined etiology, history of cephalic vein thrombosis, depression who has been having abdominal pain, nausea and vomiting for the past 3-4 days. She was seen at [facility] ED yesterday for these complaints. Blood work showed anemia with hemoglobin of 7.2 and hematocrit of 22.3. Rest of her blood work was unremarkable including a normal lipase. She was transfused 1 unit PRBC. An abdomen and pelvis contrast CT scan was done which showed several abnormal findings: There was noted thickening of the left or right adrenal gland, also noted was a lobular focus 1.3 x 2.7 cm at the inferior aspect of the adrenal gland with surrounding inflammatory changes, as well as thickened appearance of the colon which was nonspecific, and a right ovarian cyst. In addition there was noted mild patchy ground-glass opacities predominantly in the right lung with bilateral pleural effusions and mildly enlarged heart. Patient was admitted to [facility] in early September 2021 with complaints of fatigue and found to have severe anemia. She was treated with blood transfusion and has subsequently had more transfusions as an outpatient. She followed up with Dr. Mik Rivas for oncology. Her previous iron studies are not supportive of iron deficiency, on 09/14/2021 she had iron level of 206, % saturation 61, ferritin 274. She also had a normal serum protein electrophoresis and M spike was not seen. 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 Patient is apparently not yet aware of this result and only discovered subsequently upon admission as records were reviewed in further detail. She has lost about 8 kg in the past month. Patient returned to our ED due to persistent abdominal pain, dry heaves and episode of vomiting. She notes there was a little blood in basin after the vomiting but emesis was not grossly bloody. She also reports subjective fevers and chills without measured fever. She denies shortness of breath, cough, chest pain, urinary burning or urgency. Blood work shows WBC 10.6, 43% neutrophils, 15% bands on auto diff., hemoglobin 9.4, hematocrit 27.8, normal LFTs, an elevated lipase of 1649, urinalysis negative for bacteria or WBC. A repeat abdomen and pelvis CT scan again shows ground-glass opacities in the right lung, left greater than right adrenal thickening with surrounding inflammatory stranding, thickening in the transverse, descending and sigmoid bowel, small amount of ascites in the peritoneum, 2.3 cm right ovarian cyst. Also reported is mildly increased density of marrow throughout visualized osseous structures. She has 3-4 beers a day but states last drink was over a month ago. She recently quit smoking. Patient History Medical History Community acquired bacterial pneumonia Hip pain Surgical History History of tonsillectomy Family & Social History Family History Father Pancreatic cancer Mother Hx of CABG Social History: household members spouse Safety & Behavioral: Feels Safe in Current Yes Environment Been Physically Hurt or No Threatened By a Person Tobacco & Substance use: Smoking Status Former smoker alcohol intake current alcohol intake frequency 3 or more drinks per day Substance Use Type does not use Meds Home Medications and Allergies Home Medications Medication Instructions Recorded Confirmed Type cyanocobalamin (vitamin B-12) 100 325 mcg PO DAILY 10/04/21 10/04/21 History mcg tablet (Vitamin B-12) lorazepam 0.5 mg tablet (Ativan) 0.5 mg PO Q6HR PRN #20 tab 10/19/21 Rx Allergies Allergy/AdvReac Type Severity Reaction Status Date / Time No Known Drug Allergies Allergy Verified 10/24/21 12:10 Review of Systems Review of Systems Narrative: Complete 10 point ROS otherwise negative. Exam Vital Signs (past 8 hours): - 10/24/21 10:05 10/24/21 10:06 10/24/21 10:15 Temperature Pulse Rate 101 H 97 H Respiratory Rate 24 Blood Pressure 152/67 H 140/57 L Pulse Oximetry 93 97 96 10/24/21 10:27 10/24/21 10:30 10/24/21 10:32 Temperature 98.4 F 98.4 F Pulse Rate 93 H 92 H 93 H Respiratory Rate 18 22 18 Blood Pressure 152/67 H 134/63 140/57 L Pulse Oximetry 95 94 95 10/24/21 11:00 10/24/21 11:30 10/24/21 12:00 Temperature Pulse Rate 90 93 H 95 H Respiratory Rate 23 22 22 Blood Pressure 136/63 147/65 H Pulse Oximetry 95 94 94 10/24/21 12:35 10/24/21 12:36 10/24/21 13:00 Temperature Pulse Rate 107 H 105 H 102 H Respiratory Rate 19 30 H 26 H Blood Pressure 152/66 H 148/65 H Pulse Oximetry 99 95 93 10/24/21 13:30 10/24/21 14:00 10/24/21 14:30 Temperature Pulse Rate 97 H 95 H 96 H Respiratory Rate 22 21 29 H Blood Pressure 132/60 145/64 H 147/65 H Pulse Oximetry 99 99 98 10/24/21 15:10 Temperature Pulse Rate 100 H Respiratory Rate 18 Blood Pressure 137/60 Pulse Oximetry 96 Oxygen Delivery Method Room Air Narrative Exam Narrative: General: Alert female in mild distress HEENT: Anicteric, pupils equal Neck: No lymphadenopathy or neck mass Lungs: Clear to auscultation Heart: Normal S1 and S2, regular rate and rhythm, no murmur Abdomen: Appears mildly distended, mild nonspecific tenderness, no abdominal mass, no HSM Extremities: No edema Neurological: Well oriented, affect concern, speech fluent, nonfocal Skin: Cap bite noted on arm Objective Labs Result Diagrams: 10/24/21 11:00 10/24/21 11:00 Labs: Laboratory Results - last 24 hr 10/24/21 10/24/21 10/24/21 11:00 11:00 12:39 WBC 10.6 RBC 3.50 L Hgb 9.4 L Hct 27.8 L MCV 79.4 L MCH 26.8 MCHC 33.8 RDW 21.4 H Plt Count 255 Neut % (Auto) Not Reportable Lymph % (Auto) Not Reportable Cache % (Auto) Not Reportable Eos % (Auto) Not Reportable Baso % (Auto) Not Reportable Lymph # (Auto) Not Reportable Cache # (Auto) Not Reportable Baso # (Auto) Not Reportable Total Counted 100 Seg Neutrophils % 43.0 Band Neutrophils % 15.0 H Lymphocytes % (Manual) 30.0 Atypical Lymphs % 3.0 H Monocytes % (Manual) 3.0 Eosinophils % (Manual) 1.0 L Metamyelocytes % 5.0 H Neutrophils # (Manual) 6148 H RBC Morphology Not Reportable Anisocytosis 2+ H Sodium 134 L Potassium 3.3 L Chloride 98 Carbon Dioxide 29 BUN 14 Creatinine 0.54 Estimated GFR > 60.0 BUN/Creatinine Ratio 25.9 H Glucose 123 H Calcium 9.0 Total Bilirubin 0.7 AST 24 ALT 18 Alkaline Phosphatase 112 Total Protein 7.0 Albumin 3.5 Globulin 3.5 Albumin/Globulin Ratio 1.0 Lipase 1649 H Urine Color Urine Appearance Urine pH Ur Specific Richardson Urine Protein Urine Glucose (UA) Urine Ketones Urine Occult Blood Urine Nitrate Urine Bilirubin Ur Bilirubin Confirm Urine Urobilinogen Ur Leukocyte Esterase Urine RBC Urine WBC Ur Squamous Epith Cells Urine Bacteria Hyaline Casts Granular Casts Urine Mucus Ur Culture Indicated? SARS-CoV-2 (PCR) Negative 10/24/21 15:08 WBC RBC Hgb Hct MCV MCH MCHC RDW Plt Count Neut % (Auto) Lymph % (Auto) Cache % (Auto) Eos % (Auto) Baso % (Auto) Lymph # (Auto) Cache # (Auto) Baso # (Auto) Total Counted Seg Neutrophils % Band Neutrophils % Lymphocytes % (Manual) Atypical Lymphs % Monocytes % (Manual) Eosinophils % (Manual) Metamyelocytes % Neutrophils # (Manual) RBC Morphology Anisocytosis Sodium Potassium Chloride Carbon Dioxide BUN Creatinine Estimated GFR BUN/Creatinine Ratio Glucose Calcium Total Bilirubin AST ALT Alkaline Phosphatase Total Protein Albumin Globulin Albumin/Globulin Ratio Lipase Urine Color Yellow Urine Appearance Clear Urine pH 5.5 Ur Specific Richardson 1.010 Urine Protein 2+ H Urine Glucose (UA) Trace H Urine Ketones 1+ H Urine Occult Blood Trace-intact Urine Nitrate Negative Urine Bilirubin 2+ H Ur Bilirubin Confirm Negative Urine Urobilinogen 1.0 Ur Leukocyte Esterase Negative Urine RBC 0-1/hpf Urine WBC 1-5/hpf Ur Squamous Epith Cells 1-5 /hpf Urine Bacteria Few (2-10) H Hyaline Casts 0-1/lpf Granular Casts 0-1/lpf Urine Mucus 2+ H Ur Culture Indicated? Cult not indicated SARS-CoV-2 (PCR) Assessment & Plan Assessment & Plan narrative: This is a 71-year-old female with recently diagnosed severe anemia and recent peripheral flow cytometry concerning for AML presents with severe anemia, fatigue, intractable abdominal pain, nausea and vomiting, subjective fevers, recent weight loss. She has abnormal right lung ground-glass opacities on abdominal CT concerning for pneumonia. Additionally CT shows nonspecific thinkening in the colon, slight ascites and adrenal inflammation likely physician representative of acute leukemia findings. 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 -patient needs urgent oncology consultation, left message with on-call provider and waiting to hear back -transfuse for hemoglobin less than 8 2. Probable bacterial pneumonia -abdominal CT imaging from 10/[address] [facility] and again here showing pulmonary ground-glass opacities -patient denying respiratory symptoms but in view of subjective fevers and AML diagnosis would be prudent to treat aggressively -blood cultures x2 obtained in ED -cefepime 2 g IV q.8 hours, add antifungal coverage if not improving or persistent fevers in next 4-7 days -obtain chest CT to further evaluate lung abnormalities 3. Elevated lipase -abnormal lipase value of 1649 -this is likely red bustillos and not physician representative acute pancreatitis as her presenting symptoms are generally more consistent with AML -obtain abdominal ultrasound for further assessment for gallstones -supportive therapy with IV fluids, oxycodone or IV morphine as needed, ondansetron as needed, diet as tolerated 4. Hypokalemia -replace with K rider 40 mEq -check serum magnesium 5. Incidental finding noninfected cat bite wound -monitor for infection, addressed with antibiotic Admit status: Inpatient Code status: Full code DVT prophylaxis: Enoxaparin Time Spent With Patient Critical Care time: I spent a total of [] minutes of critical care time on this patient's care today; this time is exclusive of procedural time.
[2021-10-24] MEDS: SODIUM CHLORIDE 0.9% 1,000 ML 100 ML IV (17:00)
[2021-10-24] MEDS: CEFEPIME 2 GM in SODIUM CHLORIDE 0.9% 100 ML 200 ML IV (17:33)
--- NOTE | 2021-10-24 18:26 | PC.NURSE ---
Patient returned from the bathroom and was 90% O2 saturation. Placed on 1 L of oxygen, now at 93%.
[2021-10-24] MEDS: metroNIDAZOLE 500 MG/100 ML PIGGYBACK 100 MG IV (19:24)
[2021-10-24] MEDS: POTASSIUM CHLORIDE IN WATER 10 MEQ/100 ML PIGGYBACK 100 MEQ IV ×3 (19:24→23:07)
--- NOTE | 2021-10-24 19:56 | PC.NURSE ---
Potassium checked by this RN
[2021-10-24] MEDS: OXYCODONE IR 5 MG TABLET PO (21:03)
[2021-10-24] MEDS: ACETAMINOPHEN 325 MG TABLET 650 MG PO (21:04)
[2021-10-24] MEDS: AZITHROMYCIN 500 MG in DEXTROSE 5% IN WATER 250 ML IV (21:15)
[2021-10-25] VITALS (16 sets, daily range): BP systolic 114–142; BP diastolic 50–67; PULSE 88–96; RESP 15–19; TEMP 36.6–37.2; O2SAT 85–99
[2021-10-25] MEDS: POTASSIUM CHLORIDE IN WATER 10 MEQ/100 ML PIGGYBACK 100 MEQ IV (00:42)
[2021-10-25] MEDS: OXYCODONE IR 5 MG TABLET PO ×6 (00:50→22:26)
[2021-10-25] MEDS: CEFEPIME 2 GM in SODIUM CHLORIDE 0.9% 100 ML 200 ML IV (00:52)
[2021-10-25] MEDS: HYDROMORPHONE 0.5 MG INJ IV (01:34)
[2021-10-25] MEDS: metroNIDAZOLE 500 MG/100 ML PIGGYBACK 100 MG IV ×3 (02:35→18:05)
[2021-10-25 06:21] LABS: Alanine Aminotransferase 14 IU/L (<35); Albumin 2.8 g/dL (3.5-5.0); Albumin Globulin Ratio 0.9 (1.0-2.8); Alkaline Phosphatase 92 U/L (38-126); Aspartate Aminotransferase 25 IU/L (14-36); BUN Creatinine Ratio 21.6 (6-22); Bilirubin Total 0.4 mg/dL (0.2-1.3); Blood Urea Nitrogen 11 mg/dL (7-17); Calcium 8.2 mg/dL (8.4-10.2); Carbon Dioxide 28 mmol/L (22-32); Chloride 101 mmol/L (98-107); Estimated Glomerular Filt Rate > 60.0 mL/min (>60); Glucose 108 mg/dL (80-110); HEMOLYSIS < 15 (0-50); Potassium 3.6 mmol/L (3.4-5.1); Sodium 131 mmol/L (137-145); Total Protein 5.8 g/dL (6.3-8.2)
[2021-10-25 06:22] LABS: Hematocrit 22.3 % (36-46); Hemoglobin 7.4 g/dL (12.0-16.0); Mean Corpuscular HGB Conc 33.1 % (30-36); Mean Corpuscular Hemoglobin 26.5 PG (26-34); Mean Corpuscular Volume 80.1 fL (80-100); Platelet Count 210 X10^3/uL (150-400); Red Blood Cell Count 2.78 X10^6/uL (4.0-5.2); Red Cell Distribution Width 20.7 % (11.6-14.8); White Blood Cell Count 11.4 X10^3/uL (4.5-11.0)
[2021-10-25 06:34] LABS: Anisocytosis 2+
[2021-10-25 06:42] LABS: Dohle Bodies 2+; Neutrophils Absolute Manual 5472 /uL (3000-5900); Total Cells Counted 100
[2021-10-25] MEDS: ENOXAPARIN 40 MG/0.4 ML SYRINGE SUBCUT (09:43)
[2021-10-25] MEDS: CEFEPIME 2 GM in SODIUM CHLORIDE 0.9% 100 ML IV (09:44)
--- NOTE | 2021-10-25 10:37 | CM.DANOTE ---
Patient is a 71 yo female who was admitted on 10/24/21 for Abd Pain. Pt has [employer] ADV for insurance and her PCP is Lucy Redding. EMR was reviewed. Per MD, pt has hx of ETOH daily drinking but has abstained for a month and hx of severe anemia and was at [facility] ED yesterday for anemia. Pt admitted for bilateral PEs and possible bacterial pneumonia and new acute leukemia detected on admission from prior testing. Hospitalist to consult with Oncologist Dr. Rivas whom pt had appointment with recently towards determining likely initiation of leukemia tx and possible hospital transfer. MD will then discuss with pt after consultation. SW met bedside with pt and explained role and she confirms she lives in [place] [facility] [place] with spouse and 5 yo granddtr whom they raise and granddtr attending kindergarten this year in [place]. Pt is typically active and independent and denies any HH or SNF but had HH and Hospice for her mother who lived with them until she a year ago. Pt's DPOA is her spouse Den and her adult son who lives in [place]. 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 Plan: SW to follow closely after Oncologist consult towards determining POC and medical needs towards determining possible transfer or confirm safe plan of home with family. ROGER Michelle Discharge Planning/Care Management Advanced directive, confirm from FAMILY Start: 10/24/21 20:59 Freq: Q24H Status: Active Protocol: Document 10/25/21 03:10 AGW (Rec: 10/25/21 03:10 AGW [id number]) Advance Directive, confirm on record Time 23:30 Person contacted patient Copy received No CM Discharge Assessment Start: 10/25/21 09:43 Freq: Status: Active Protocol: Document 10/25/21 09:43 BF (Rec: 10/25/21 10:37 BF [id number]) Discharge Planning Assessment Assigned Horologist Apprentice ROGER Kilgore DPOA/Assigned Designee Name Spouse and son in [place] Contact Information [phone] Advance Directives? Yes Advance Directives on File No History Provided By Patient,Medical Record Has Patient been admitted in last 30 No days? Comment Last admitted in Sep 2021 about a month ago Prior Living Arrangements House Household Members spouse,family Comment Lives at home with spouse and 5 yo granddtr Type of transporation used prior to Drives own vehicle admit Independent with ADL's Yes Is patient alert and oriented? Yes Caregiver for Another Yes: 5 yo granddtr Barriers to Discharge No Discharge Plan Home Transportation Arrangement Spouse available to transport at d/c Additional Comment Pending progress and needs Whiteboard Updated in Patient Room with Yes name and ext. # of Horologist Apprentice Review Status In Process Please Provide Date Initial DC 10/25/21 Assessment Was Performed Next Review Type Continued Stay Review
[2021-10-25 14:33] LABS: Fibrinogen 496 mg/dL (211-428); INR 1.5 (0.9-1.3); Prothrombin Time 17.1 SECONDS (10.1-12.7)
[2021-10-25 14:36] LABS: PTT Partial Thromboplastin Tim 29 SECONDS (26.4-36.2)
[2021-10-25 15:03] LABS: Uric Acid 4.9 mg/dL (2.5-6.2)
[2021-10-25] MEDS: CEFEPIME 2 GM in SODIUM CHLORIDE 0.9% 100 ML 125 ML IV (16:17)
--- NOTE | 2021-10-25 18:24 | PM.PN.1 ---
Subjective Subjective Date Patient Seen: 10/25/21 Interval history: The patient is a 71-year-old female admitted to the hospital with pneumonia, she has a history of recurrent anemia. 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 This was discussed with the patient, as well as Dr. Vaughn her oncologist. The patient will continue to be treated for pneumonia. Plans are underway for transfer to [facility] for inpatient induction chemotherapy. The patient continues to have intermittent abdominal pain. She denies any shortness of breath. Exam Vital Signs (past 8 hours): - 10/25/21 11:35 10/25/21 12:11 10/25/21 16:05 Temperature 98.9 F Pulse Rate 96 H Respiratory Rate 16 Blood Pressure 132/65 Pulse Oximetry 95 96 85 L 10/25/21 16:25 Temperature Pulse Rate Respiratory Rate Blood Pressure Pulse Oximetry 96 Oxygen Delivery Method Room Air Oxygen Flow Rate 0 Narrative Exam Narrative: Ill-appearing elderly female lying in bed Resp Other: Lungs: Decreased breath sounds with scattered crackles bilaterally Cardio Other: Cardiac exam: Regular rate and rhythm normal S1-S2 with a 2/6 systolic ejection murmur GI Other: Abdomen: Soft mildly tender in the midepigastric area, no board-like rigidity, no rebound tenderness, no palpable masses Extrem Other: No edema Objective Labs Result Diagrams: 10/25/21 05:06 10/25/21 05:06 Labs: Laboratory Results - last 24 hr 10/25/21 10/25/21 10/25/21 05:06 05:06 14:15 WBC 11.4 H RBC 2.78 L Hgb 7.4 L Hct 22.3 L MCV 80.1 MCH 26.5 MCHC 33.1 RDW 20.7 H Plt Count 210 Total Counted 100 Seg Neutrophils % 41.0 Band Neutrophils % 7.0 Lymphocytes % (Manual) 24.0 L Atypical Lymphs % 14.0 H Monocytes % (Manual) 2.0 Eosinophils % (Manual) 2.0 Basophils % (Manual) 3.0 H Metamyelocytes % 5.0 H Blast Cells % 2.0 H Neutrophils # (Manual) 5472 Dohle Bodies 2+ H RBC Morphology See below Anisocytosis 2+ H PT 17.1 H INR 1.5 H APTT 29 D Fibrinogen 496 H Sodium 131 L Potassium 3.6 Chloride 101 Carbon Dioxide 28 BUN 11 Creatinine 0.51 L Estimated GFR > 60.0 BUN/Creatinine Ratio 21.6 Glucose 108 Uric Acid Calcium 8.2 L Total Bilirubin 0.4 AST 25 ALT 14 Alkaline Phosphatase 92 Total Protein 5.8 L Albumin 2.8 L Globulin 3.0 Albumin/Globulin Ratio 0.9 L 10/25/21 14:15 WBC RBC Hgb Hct MCV MCH MCHC RDW Plt Count Total Counted Seg Neutrophils % Band Neutrophils % Lymphocytes % (Manual) Atypical Lymphs % Monocytes % (Manual) Eosinophils % (Manual) Basophils % (Manual) Metamyelocytes % Blast Cells % Neutrophils # (Manual) Dohle Bodies RBC Morphology Anisocytosis PT INR APTT Fibrinogen Sodium Potassium Chloride Carbon Dioxide BUN Creatinine Estimated GFR BUN/Creatinine Ratio Glucose Uric Acid 4.9 Calcium Total Bilirubin AST ALT Alkaline Phosphatase Total Protein Albumin Globulin Albumin/Globulin Ratio [facility] Medical History Community acquired bacterial pneumonia Hip pain Surgical History History of tonsillectomy Family History Father Pancreatic cancer Mother Hx of CABG Social History household members: spouse and family Smoking Status: Former smoker alcohol intake: former Assessment & Plan Assessment & Plan narrative: Acute myeloid leukemia -peripheral flow cytometry on 10/18/2021 indicative of AML, greater than 20% blasts -patient presenting very symptomatic with abdominal pain, nausea and vomiting, and subjective fevers with recent significant weight loss. -patient needs urgent oncology consultation, left message with on-call provider and waiting to hear back -transfuse for hemoglobin less than 8 -will transfuse 2 units of packed RBCs -plans underway for transfer to for induction chemotherapy -will check uric acid, DIC screen to rule out tumor lysis syndrome, 2. Probable bacterial pneumonia -abdominal CT imaging from 10/[address] [facility] and again here showing pulmonary ground-glass opacities -patient denying respiratory symptoms but in view of subjective fevers and AML diagnosis would be prudent to treat aggressively -blood cultures x2 obtained in ED -cefepime 2 g IV q.8 hours, add antifungal coverage if not improving or persistent fevers in next 4-7 days -obtain chest CT to further evaluate lung abnormalities -continue antibiotics 3.? 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 assessment for gallstones -supportive therapy with IV fluids,? oxycodone or IV morphine as needed, ondansetron as needed, diet as tolerated -doubt pancreatitis 4. Hypokalemia -replace with K rider 40 mEq -check serum magnesium 5. Incidental finding noninfected cat bite wound -monitor for infection, addressed with antibiotic 6. Hyponatremia -will continue to follow Time Spent With Patient Critical Care time: I spent a total of [] minutes of critical care time on this patient's care today; this time is exclusive of procedural time.
[2021-10-25] MEDS: AZITHROMYCIN 500 MG in DEXTROSE 5% IN WATER 250 ML IV (23:49)
[2021-10-26] VITALS (14 sets, daily range): BP systolic 124–143; BP diastolic 58–67; PULSE 86–92; RESP 17–18; TEMP 36.7–37.2; O2SAT 94–97
[2021-10-26] MEDS: CEFEPIME 2 GM in SODIUM CHLORIDE 0.9% 100 ML 200 ML IV ×3 (01:15→16:54)
[2021-10-26] MEDS: metroNIDAZOLE 500 MG/100 ML PIGGYBACK 100 MG IV ×2 (02:53→11:10)
[2021-10-26] MEDS: OXYCODONE IR 5 MG TABLET PO ×5 (03:00→21:05)
[2021-10-26 06:13] LABS: Hematocrit 28.6 % (36-46); Hemoglobin 9.6 g/dL (12.0-16.0); Mean Corpuscular HGB Conc 33.4 % (30-36); Mean Corpuscular Hemoglobin 27.3 PG (26-34); Mean Corpuscular Volume 81.8 fL (80-100); Platelet Count 188 X10^3/uL (150-400); Red Cell Distribution Width 19.3 % (11.6-14.8); White Blood Cell Count 13.9 X10^3/uL (4.5-11.0)
[2021-10-26 06:15] LABS: Add Manual Diff / Slide Review YES
[2021-10-26 06:21] LABS: Alanine Aminotransferase 12 IU/L (<35); Albumin 2.8 g/dL (3.5-5.0); Alkaline Phosphatase 92 U/L (38-126); Aspartate Aminotransferase 24 IU/L (14-36); BUN Creatinine Ratio 15.5 (6-22); Bilirubin Total 0.7 mg/dL (0.2-1.3); Blood Urea Nitrogen 9 mg/dL (7-17); Calcium 8.1 mg/dL (8.4-10.2); Carbon Dioxide 23 mmol/L (22-32); Chloride 99 mmol/L (98-107); Estimated Glomerular Filt Rate > 60.0 mL/min (>60); Globulin 2.9 g/dL (1.7-4.1); Glucose 92 mg/dL (80-110); HEMOLYSIS < 15 (0-50); Potassium 3.5 mmol/L (3.4-5.1); Sodium 130 mmol/L (137-145); Total Protein 5.7 g/dL (6.3-8.2)
[2021-10-26 06:40] LABS: Anisocytosis 1+; Neutrophils Absolute Manual 5421 /uL (3000-5900); Poikilocytosis 1+; Total Cells Counted 100
[2021-10-26] MEDS: ENOXAPARIN 40 MG/0.4 ML SYRINGE SUBCUT (09:01)
--- NOTE | 2021-10-26 14:42 | PM.PN.1 ---
Subjective Subjective Date Patient Seen: 10/26/21 Interval history: 71-year-old female admitted to the hospital with new diagnosis of acute myelogenous leukemia. Patient received 2 units of packed RBCs last evening. Since that time she feels significantly improved. She denies any shortness of breath. She continues to have some abdominal fullness and minimal abdominal pain. Overall she feels significantly improved. Exam Vital Signs (past 8 hours): - 10/26/21 08:00 10/26/21 09:30 10/26/21 12:00 Temperature 98.9 F Pulse Rate 92 H Respiratory Rate 18 Blood Pressure 126/62 Pulse Oximetry 95 94 96 Oxygen Delivery Method Room Air Oxygen Flow Rate 0 Narrative Exam Narrative: Pleasant female lying in bed Resp Other: Lungs: Diffuse crackles bilaterally Cardio Other: Cardiac exam: Regular rate and rhythm normal S1-S2 GI Other: Abdomen: Mildly distended, soft mildly tender in the lower quadrants, no palpable masses, no rebound tenderness, no board-like rigidity Skin Other: telangiectasias of patient's along the face Extrem Other: No edema Objective Labs Result Diagrams: 10/26/21 05:58 10/26/21 05:58 Labs: Laboratory Results - last 24 hr 10/25/21 10/25/21 10/26/21 14:15 19:35 05:58 WBC 13.9 H RBC 3.50 L Hgb 9.6 L Hct 28.6 L MCV 81.8 MCH 27.3 MCHC 33.4 RDW 19.3 H Plt Count 188 Neut % (Auto) Not Reportable Lymph % (Auto) Not Reportable [place] % (Auto) Not Reportable Eos % (Auto) Not Reportable Baso % (Auto) Not Reportable Lymph # (Auto) Not Reportable [place] # (Auto) Not Reportable Baso # (Auto) Not Reportable Total Counted 100 Seg Neutrophils % 39.0 Lymphocytes % (Manual) 33.0 Atypical Lymphs % 11.0 H Monocytes % (Manual) 17.0 H Neutrophils # (Manual) 5421 RBC Morphology Not Reportable Poikilocytosis 1+ H Anisocytosis 1+ H Sodium Potassium Chloride Carbon Dioxide BUN Creatinine Estimated GFR BUN/Creatinine Ratio Glucose Uric Acid 4.9 Calcium Total Bilirubin AST ALT Alkaline Phosphatase Total Protein Albumin Globulin Albumin/Globulin Ratio Blood Type A Negative Antibody Screen Negative Crossmatch See Detail 10/26/21 05:58 WBC RBC Hgb Hct MCV MCH MCHC RDW Plt Count Neut % (Auto) Lymph % (Auto) [place] % (Auto) Eos % (Auto) Baso % (Auto) Lymph # (Auto) [place] # (Auto) Baso # (Auto) Total Counted Seg Neutrophils % Lymphocytes % (Manual) Atypical Lymphs % Monocytes % (Manual) Neutrophils # (Manual) RBC Morphology Poikilocytosis Anisocytosis Sodium 130 L Potassium 3.5 Chloride 99 Carbon Dioxide 23 BUN 9 Creatinine 0.58 Estimated GFR > 60.0 BUN/Creatinine Ratio 15.5 Glucose 92 Uric Acid Calcium 8.1 L Total Bilirubin 0.7 AST 24 ALT 12 Alkaline Phosphatase 92 Total Protein 5.7 L Albumin 2.8 L Globulin 2.9 Albumin/Globulin Ratio 1.0 Blood Type Antibody Screen Crossmatch [facility] Medical History Community acquired bacterial pneumonia Hip pain Surgical History History of tonsillectomy Family History Father Pancreatic cancer Mother Hx of CABG Social History household members: spouse and family Smoking Status: Former smoker alcohol intake: former Assessment & Plan Assessment & Plan narrative: Acute myeloid leukemia -peripheral flow cytometry on 10/18/2021 indicative of AML, greater than 20% blasts -patient presenting very symptomatic with abdominal pain, nausea and vomiting, and subjective fevers with recent significant weight loss. -patient needs urgent oncology consultation, left message with on-call provider and waiting to hear back -transfuse for hemoglobin less than 8 -will transfuse 2 units of packed RBCs -plans underway for transfer to for induction chemotherapy -will check uric acid, DIC screen to rule out tumor lysis syndrome, -patient had a uric acid of 4.9, no evidence of DIC -patient received 2 units of packed RBCs with significant improvement, hemoglobin 9 hematocrit 28 today 2. Probable bacterial pneumonia -abdominal CT imaging from 10/23 at [facility] and again here showing pulmonary ground-glass opacities -patient denying respiratory symptoms but in view of subjective fevers and AML diagnosis would be prudent to treat aggressively -blood cultures x2 obtained in ED -cefepime 2 g IV q.8 hours, add antifungal coverage if not improving or persistent fevers in next 4-7 days -obtain chest CT to further evaluate lung abnormalities -continue antibiotics 3.? 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 assessment for gallstones -supportive therapy with IV fluids,? oxycodone or IV morphine as needed, ondansetron as needed, diet as tolerated -doubt pancreatitis 4. Hypokalemia -replace with K rider 40 mEq -check serum magnesium 5. Incidental finding noninfected cat bite wound -monitor for infection, addressed with antibiotic 6. Hyponatremia -will continue to follow 7. Continue to await transfer to [facility] Time Spent With Patient Critical Care time: I spent a total of [] minutes of critical care time on this patient's care today; this time is exclusive of procedural time.
[2021-10-26] MEDS: SODIUM CHLORIDE 0.9% FLUSH 10 ML IV (21:05)
[2021-10-26] MEDS: AZITHROMYCIN 500 MG in DEXTROSE 5% IN WATER 250 ML 200 ML IV (23:58)
[2021-10-27] VITALS (12 sets, daily range): BP systolic 142–153; BP diastolic 62–74; PULSE 74–90; RESP 16–18; TEMP 36.2–37.1; O2SAT 93–96
[2021-10-27] MEDS: SODIUM CHLORIDE 0.9% 250 ML 21 ML IV
[2021-10-27] MEDS: CEFEPIME 2 GM in SODIUM CHLORIDE 0.9% 100 ML 200 ML IV ×2 (01:42→09:23)
[2021-10-27] MEDS: OXYCODONE IR 5 MG TABLET PO (01:45)
--- NOTE | 2021-10-27 05:17 | PC.NURSE ---
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 Medication was run at 200 mL/hr this shift and pt and IV site tolerated well with no issues.
[2021-10-27 05:30] LABS: Hematocrit 29.3 % (36-46); Hemoglobin 9.9 g/dL (12.0-16.0); Mean Corpuscular HGB Conc 33.8 % (30-36); Mean Corpuscular Hemoglobin 27.6 PG (26-34); Mean Corpuscular Volume 81.7 fL (80-100); Platelet Count 175 X10^3/uL (150-400); Red Blood Cell Count 3.59 X10^6/uL (4.0-5.2); Red Cell Distribution Width 19.5 % (11.6-14.8); White Blood Cell Count 15.4 X10^3/uL (4.5-11.0)
[2021-10-27 05:32] LABS: Add Manual Diff / Slide Review YES
[2021-10-27 05:33] LABS: Alanine Aminotransferase 11 IU/L (<35); Albumin 2.8 g/dL (3.5-5.0); Alkaline Phosphatase 91 U/L (38-126); Aspartate Aminotransferase 25 IU/L (14-36); BUN Creatinine Ratio 12.5 (6-22); Bilirubin Total 0.4 mg/dL (0.2-1.3); Blood Urea Nitrogen 7 mg/dL (7-17); Calcium 8.3 mg/dL (8.4-10.2); Carbon Dioxide 25 mmol/L (22-32); Chloride 99 mmol/L (98-107); Estimated Glomerular Filt Rate > 60.0 mL/min (>60); Globulin 2.9 g/dL (1.7-4.1); Glucose 94 mg/dL (80-110); HEMOLYSIS < 15 (0-50); Potassium 3.1 mmol/L (3.4-5.1); Sodium 132 mmol/L (137-145); Total Protein 5.7 g/dL (6.3-8.2)
[2021-10-27 05:42] LABS: NT-proBNP (BNP-Adult 18+) 3620 pg/mL (<125)
[2021-10-27 07:34] LABS: Anisocytosis 1+; Neutrophils Absolute Manual 8470 /uL (3000-5900); RBC Morphology Normal Morphology; Total Cells Counted 100
[2021-10-27] MEDS: ENOXAPARIN 40 MG/0.4 ML SYRINGE SUBCUT (09:24)
[2021-10-27] MEDS: SODIUM CHLORIDE 0.9% FLUSH 10 ML IV (09:24)
[2021-10-27] MEDS: POTASSIUM CHLORIDE 20 MEQ TAB 40 MEQ PO ×2 (11:17→17:13)
--- NOTE | 2021-10-27 15:31 | PM.DS.1 ---
History of Present Illness History of Present Illness Date Patient Seen: 10/27/21 Time Patient Seen: 15:32 Chief complaint: Abd pain, N/V Narrative: Patient is a 71-year-old female with history of tobacco use, alcohol abuse, recent discovery of severe anemia of undetermined etiology, history of cephalic vein thrombosis, depression who has been having abdominal pain, nausea and vomiting for the past 3-4 days.? She was seen at [facility] ED yesterday for these complaints.? Blood work showed anemia with hemoglobin of 7.2 and hematocrit of 22.3.? Rest of her blood work was unremarkable including a normal lipase.? She was transfused 1 unit PRBC.? An abdomen and pelvis contrast CT scan was done which showed several abnormal findings:? There was noted thickening of the left or right adrenal gland, also noted was a lobular focus 1.3 x 2.7 cm at the inferior aspect of the adrenal gland with surrounding inflammatory changes, as well as thickened appearance of the colon which was nonspecific, and a right ovarian cyst.? In addition there was noted mild patchy ground-glass opacities predominantly in the right lung with bilateral pleural effusions and mildly enlarged heart. Patient was admitted to [facility] in early September 2021 with complaints of fatigue and found to have severe anemia.? She was treated with blood transfusion and has subsequently had more transfusions as an outpatient.? She followed up with Dr. Mik Rivas for oncology.? Her previous iron studies are not supportive of iron deficiency, on 09/14/2021 she had iron level of 206, % saturation 61, ferritin 274.? She also had a normal serum protein electrophoresis and M spike was not seen.??A peripheral flow cytometry on 10/18/2021 is positive for AML, > 20% blasts.? Patient is apparently not yet aware of this result and only discovered subsequently upon admission as records were reviewed in further detail.? She has lost about 8 kg in the past month. Patient returned to our ED due to persistent abdominal pain, dry heaves and episode of vomiting.? She?notes there was a little blood in basin after the vomiting but emesis was not grossly bloody.? She also reports subjective fevers and chills without measured fever.? She denies shortness of breath, cough, chest pain, urinary burning or urgency. Blood work shows WBC 10.6, 43% neutrophils, 15% bands on auto diff., hemoglobin 9.4, hematocrit 27.8, normal LFTs, an elevated lipase of 1649, urinalysis negative for bacteria or WBC.? A repeat abdomen and pelvis CT scan again shows ground-glass opacities in the right lung, left greater than right adrenal thickening with surrounding inflammatory stranding, thickening in the transverse, descending and sigmoid bowel, small amount of ascites in the peritoneum, 2.3 cm right ovarian cyst.? Also reported is mildly increased density of marrow throughout visualized osseous structures. She has 3-4 beers a day but states last drink was over a month ago.? She recently quit smoking. Discharge Providers Provider Date of admission: 10/24/21 16:00 Discharge Date: 10/27/21 Primary care physician: Lucy Redding PA-C Consults: 10/24/21 18:34 Consult to Physician Routine Comment: Consulting Provider: Mik Rivas Reason for consultation: new dx AML Discharge provider: Jennifer Connors MD Summary Hospital Course Discharge Diagnosis: 1. Acute myelogenous leukemia 2. Community-acquired pneumonia 3. Elevated lipase, etiology unclear 4. History of nicotine dependence 5. Depression Hospital Course: Patient was admitted to the hospital for shortness of breath and abdominal pain. During her hospital stay she was treated for pneumonia. The patient had a peripheral flow cytometry which was positive for AML with greater than 20% blasts. She also had symptomatic anemia and required transfusion of 3 units of blood. The patient at no time was neutropenic. Patient was febrile on admission, but defervesced nicely, she has had no thrombocytopenia. Her shortness of breath, and abdominal pain is improved. She feels significantly improved. She understands that she will be discharged home with plans to follow-up with Dr. Nesbitt for transfusion therapy, until she gets in to the [facility]. I have discussed the case with Dr. Valadez from the [facility], they recommended that she be discharged and she will follow-up with them as an outpatient once they can resolve her insurance issue. In the interim she will need transfusion therapy for her anemia. Patient is discharged home in satisfactory condition period. Status at Discharge Cognitive/behavioral status at discharge: oriented Functional status at discharge: independent ambulation Overall status at discharge: patient is progressing back to baseline Exam Vital Signs (past 8 hours): - 10/27/21 08:00 10/27/21 09:40 10/27/21 11:02 Temperature 98.8 F Pulse Rate 88 Respiratory Rate 18 Blood Pressure 142/62 H Pulse Oximetry 94 95 94 10/27/21 12:00 10/27/21 14:26 Temperature Pulse Rate Respiratory Rate Blood Pressure Pulse Oximetry 94 95 Oxygen Delivery Method Room Air Oxygen Flow Rate 0 Narrative Exam Narrative: Pleasant female lying in bed Resp Other: Lungs decreased breath sounds but clear to auscultation Cardio Other: Cardiac exam: Regular rate rhythm normal S1-S2 GI Other: Abdomen: Soft and nontender Extrem Other: Extremities: No edema Objective Labs Result Diagrams: 10/27/21 04:48 10/27/21 04:48 Labs: Laboratory Results - last 24 hr 10/27/21 10/27/21 04:48 04:48 WBC 15.4 H RBC 3.59 L Hgb 9.9 L Hct 29.3 L MCV 81.7 MCH 27.6 MCHC 33.8 RDW 19.5 H Plt Count 175 Neut % (Auto) Not Reportable Lymph % (Auto) Not Reportable [place] % (Auto) Not Reportable Eos % (Auto) Not Reportable Baso % (Auto) Not Reportable Lymph # (Auto) Not Reportable [place] # (Auto) Not Reportable Baso # (Auto) Not Reportable Total Counted 100 Seg Neutrophils % 45.0 Band Neutrophils % 10.0 H Lymphocytes % (Manual) 26.0 Atypical Lymphs % 9.0 H Monocytes % (Manual) 9.0 Blast Cells % 1.0 H Neutrophils # (Manual) 8470 H RBC Morphology Normal morphology Anisocytosis 1+ H Sodium 132 L Potassium 3.1 L Chloride 99 Carbon Dioxide 25 BUN 7 Creatinine 0.56 Estimated GFR > 60.0 BUN/Creatinine Ratio 12.5 Glucose 94 Calcium 8.3 L Total Bilirubin 0.4 AST 25 ALT 11 Alkaline Phosphatase 91 NT-Pro-B Natriuret Pep 3620 H Total Protein 5.7 L Albumin 2.8 L Globulin 2.9 Albumin/Globulin Ratio 1.0 PFSH Medical History Community acquired bacterial pneumonia Hip pain Surgical History History of tonsillectomy Family History Father Pancreatic cancer Mother Hx of CABG Social History household members: spouse and family Smoking Status: Former smoker alcohol intake: former Discharge Assessment & Plan Assessment and Plan Assessment: 1. Acute myelogenous leukemia 2. Community-acquired pneumonia 3. Elevated lipase, etiology unclear 4. History of nicotine dependence 5. Depression Plan of Treatment: Discharge home Follow-up with Dr. Rivas next week Follow-up with [facility] next week Discharge Plan Discharge Plan Patient Disposition: Home Discharge orders & Medications Prescriptions: New levofloxacin 750 mg tablet 750 mg PO DAILY Qty: 7 0RF No Action No Known Home Medications 0RF Follow up/Referrals: Lucy Redding PA-C [Primary Care Provider] - Mik Rivas MD [Physician] - (follow up of anemia Needs referral to [facility] for outpatient evaluation) Discharge Health Status Multidrug resistant organism: No MDRO Diet/Activity/Treatments Diet: Diet as Tolerated Activity: as tolerated Skin/Wound/Dressing Care Report to your healthcare provider any signs of infection, such as:: chills, fever Discharge Data Primary Care Provider: Lucy Redding
--- NOTE | 2021-10-27 16:59 | PC.NURSE ---
D/C to home ordered by provider. Provider requested pt ambulate in halls with pulse ox. Pt amulated 1x around unit maintained sats 96%. Steady on feet, tolerated ambulation well. Pt verbalized understanding of all d/c instructions. Pt escorted off unit in stable condition via w/c with all personal belongings.
== END 2021-10-27 17:20 | disposition home or self-care (01) | DRG 834 ==
LOC: ED 14:53 → AC 16:28
PROVIDERS: Internal Medicine; Admitting Provider Internal Medicine; Emergency Provider Emergency Medicine; PCP Student in an Organized Health Care Education/Training Program; Referring Provider Internal Medicine Medical Oncology; Visit Provider Internal Medicine
DX: C92.00 Acute myeloblastic leukemia, not having achieved remission (principal); J15.6 Pneumonia due to other Gram-negative bacteria; D63.0 Anemia in neoplastic disease; E87.6 Hypokalemia; R74.8 Abnormal levels of other serum enzymes; Z87.891 Personal history of nicotine dependence; Z20.822 Contact with and (suspected) exposure to COVID-19
CPT/HCPCS: 36415; 36430; 71260; 74177; 76705; 76770; 80053; 81001; 83690; 83735; 83880; 84550; 85007; 85025; 85384; 85610; 85730; 86644; 86850; 86900; 86901; 87635; 94760; 96361; 96365; 96368; 96375; 96376; 99284; 99285; C9803; P9016; J0692; J1170; J1650; J2270; J2405; Q9967